=== PATIENT | male | born 1940 | race Caucasian/White ===

== ENCOUNTER 2022-03-18 06:09 | Outpatient (REF) | payer MEDICARE, SELFPAY ==
[2022-03-18 07:51] LABS: MANUAL DIFF FLAG NO
[2022-03-18 07:55] LABS: Basophils Percent Auto 0.6 % (0-2); Eosinophils Absolute Auto 0.2 X10*3/uL (0.0-0.4); Eosinophils Percent Auto 3.2 % (0-4); Hematocrit 34.6 % (42.0-52.0); Hemoglobin 11.7 g/dl (14.0-18.0); Imm Gran Abs Auto 0.02 X10*3/uL (0.00-0.03); Imm Gran Pct Auto 0.3 % (0.0-0.4); Lymphocytes Absolute Auto 2.2 X10*3/uL (1.2-4.9); Lymphocytes Percent Auto 31.7 % (20-40); Mean Corpuscular HGB Conc 33.8 g/dl (31.0-36.0); Mean Corpuscular Hemoglobin 31.1 pg (27.0-33.0); Mean Platelet Volume 8.6 fL (9.4-12.4); Monocytes Absolute Auto 0.5 X10*3/uL (0.1-1.2); Monocytes Percent Auto 7.8 % (2-11); Neutrophils Absolute Auto 3.9 x10*3/uL (2.0-8.3); Neutrophils Percent Auto 56.4 % (45-73); Platelet Count 252 X10*3/uL (160-400); Red Blood Count 3.76 X10*6/uL (4.60-5.80); Red Cell Distribution Width 15.5 % (11.0-16.0)
[2022-03-18 08:17] LABS: Estimated Average Glucose 171 mg/dL; Hemoglobin A1c % 7.6 %
[2022-03-18 08:37] LABS: B Type Natriuretic Peptide 66 pg/mL (<100)
[2022-03-18 08:38] LABS: Alanine Aminotransferase 40 U/L (0-40); Albumin Level 3.4 g/dL (3.5-5.0); Alkaline Phosphatase 100 U/L (39-117); Anion Gap 14 (12-20); Aspartate Amino Transferase 36 U/L (5-37); Bilirubin Total 0.8 mg/dL (0.0-1.0); Blood Urea Nitrogen 24 mg/dL (9-16); Calcium 8.7 mg/dL (8.4-10.2); Carbon Dioxide 24 mmol/L (22-29); Chloride 102 mmol/L (96-108); Estimated Glomerular Filt Rate > 60; Glucose Fasting 116 mg/dL (60-99); Sodium 136 mmol/L (135-145); Total Protein 7.4 g/dL (6.5-8.0)
[2022-03-18 08:54] LABS: Prostate Specific Antigen Scr 1.96 ng/mL (<0.05-4.0); Thyroid Stimulating Hormone 3.71 uIU/mL (0.32-4.0); Vitamin D 25-OH Total 22.4 ng/mL (>30)
[2022-03-18 09:08] LABS: Folate 17.8 ng/mL (> or = 4.0); Vitamin B12 414 pg/mL (200-900)
[2022-03-18 12:24] LABS: Appearance Urine Clear; Color Urine Yellow; Glucose Urine UA Negative (Negative); Leukocyte Esterase Urine Negative (Negative); Nitrite Urine Negative (Negative); PH 6.5 (5.0-9.0); Urine Blood Negative (Negative); Urine Ketones Negative (Negative); Urine Protein Negative (Neg-Trace)
[2022-03-18 13:37] LABS: Creatinine Urine 42.53 mg/dL; Microalbum/Creatinine Ratio Ur 14.1 ug/mg cr
[2022-03-21 04:02] LABS: TS Negative Control Passed; TS Panel A 0; TS Panel B 0; TS Positive Control Passed; TSpotTB Negative (Negative)
== END 2022-03-18 06:10 | disposition home or self-care (01) ==
LOC: HO.HSH2E 06:09
PROVIDERS: Visit Provider Internal Medicine Medical Oncology
DX: Z11.1 Encounter for screening for respiratory tuberculosis (principal); Z12.5 Encounter for screening for malignant neoplasm of prostate; E11.9 Type 2 diabetes mellitus without complications; I10 Essential (primary) hypertension; M81.0 Age-related osteoporosis without current pathological fracture
CPT/HCPCS: 36415; 80053; 81003; 82043; 82306; 82607; 82746; 83036; 83880; 84153; 84443; 85025; 86481

== ENCOUNTER 2022-07-15 05:56 | Outpatient (REF) | payer MEDICARE, SELFPAY ==
[2022-07-15 06:36] LABS: Cholesterol 98 mg/dL; HDL Cholesterol 37 mg/dL; LDL Cholesterol Calculated 43 mg/dl; Triglycerides 93 mg/dL
[2022-07-15 06:51] LABS: Vitamin D 25-OH Total 24.9 ng/mL (>30)
== END 2022-07-15 05:57 | disposition home or self-care (01) ==
LOC: HO.HSH2E 05:56
PROVIDERS: Visit Provider Internal Medicine Medical Oncology
DX: E78.00 Pure hypercholesterolemia, unspecified (principal); E55.9 Vitamin D deficiency, unspecified
CPT/HCPCS: 36415; 80061; 82306

== ENCOUNTER 2022-09-03 05:39 | Outpatient (REF) | payer MEDICARE, SELFPAY | END 2022-09-03 05:40 | disposition home or self-care (01) | LOC: HO.HSH2E 05:39 | PROVIDERS: Visit Provider Internal Medicine Medical Oncology | DX: I50.9 Heart failure, unspecified (principal) | CPT/HCPCS: 36415; 80053; 83880; 85025 ==

== ENCOUNTER 2022-12-14 05:22 | Outpatient (REF) | payer MEDICARE, SELFPAY ==
[2022-12-14 06:27] LABS: MANUAL DIFF FLAG NO
[2022-12-14 06:29] LABS: Basophils Percent Auto 0.6 % (0-2); Eosinophils Absolute Auto 0.2 X10*3/uL (0.0-0.4); Eosinophils Percent Auto 2.5 % (0-4); Imm Gran Abs Auto 0.01 X10*3/uL (0.00-0.03); Imm Gran Pct Auto 0.1 % (0.0-0.4); Lymphocytes Absolute Auto 2.1 X10*3/uL (1.2-4.9); Lymphocytes Percent Auto 31.7 % (20-40); Mean Corpuscular HGB Conc 34.2 g/dl (31.0-36.0); Mean Corpuscular Hemoglobin 31.9 pg (27.0-33.0); Mean Corpuscular Volume 93.1 fL (80.0-98.0); Monocytes Absolute Auto 0.5 X10*3/uL (0.1-1.2); Monocytes Percent Auto 7.5 % (2-11); Neutrophils Absolute Auto 3.9 x10*3/uL (2.0-8.3); Neutrophils Percent Auto 57.6 % (45-73); Platelet Count 224 X10*3/uL (160-400); Red Blood Count 4.08 X10*6/uL (4.60-5.80); Red Cell Distribution Width 13.7 % (11.0-16.0); White Blood Count 6.7 X10*3/uL (4.8-10.8)
[2022-12-14 06:46] LABS: Alanine Aminotransferase 27 U/L (0-40); Albumin Level 3.8 g/dL (3.5-5.0); Alkaline Phosphatase 86 U/L (39-117); Anion Gap 15 (12-20); Aspartate Amino Transferase 27 U/L (5-37); Bilirubin Total 0.6 mg/dL (0.0-1.0); Blood Urea Nitrogen 23 mg/dL (9-16); Carbon Dioxide 24 mmol/L (22-29); Chloride 101 mmol/L (96-108); Estimated Glomerular Filt Rate 57; Glucose Random 166 mg/dL (60-115); Magnesium 1.8 mg/dL (1.6-2.6); Potassium 4.1 mmol/L (3.3-5.1); Sodium 136 mmol/L (135-145)
== END 2022-12-14 05:23 | disposition home or self-care (01) ==
LOC: HO.HSH2E 05:22
PROVIDERS: Visit Provider Internal Medicine Medical Oncology
DX: I49.8 Other specified cardiac arrhythmias (principal)
CPT/HCPCS: 36415; 80053; 82550; 83735; 85025

== ENCOUNTER 2023-01-10 05:12 | Outpatient (REF) | payer MEDICARE, SELFPAY ==
[2023-01-10 07:21] LABS: Cholesterol 113 mg/dL (<200); HDL Cholesterol 35 mg/dL (>40); LDL Cholesterol Calculated 52 mg/dL (<100); Triglycerides 133 mg/dL (<150)
== END 2023-01-10 05:13 | disposition home or self-care (01) ==
LOC: HO.HSH2E 05:12
PROVIDERS: Visit Provider Internal Medicine Medical Oncology
DX: E78.5 Hyperlipidemia, unspecified (principal)
CPT/HCPCS: 36415; 80061

== ENCOUNTER 2023-04-24 00:48 | Emergency (ER) | payer MEDICARE, SELFPAY ==
--- NOTE | ~2023-04-24 | XR_ITS ---
EXAMINATION: XR CHEST CLINICAL INFORMATION: Chest pain. COMPARISON: None available. TECHNIQUE: Frontal view of the chest was obtained. FINDINGS: The lung volumes are low. The cardiac silhouette appears to be enlarged. Pacer leads are in place. There is a linear right lung base opacity. The lungs are otherwise clear. There are no significant pleural effusions. The bony structures and soft tissues are unremarkable. XR/XR chest 1V IMPRESSION: Linear right lung base opacity likely representing atelectasis in the setting of low lung volumes. The cardiac silhouette appears to be enlarged.
--- NOTE | 2023-04-24 01:00 | ECG_ITS ---
Test Reason : CHEST PX Blood Pressure : / mmHG Vent. Rate : 061 BPM Atrial Rate : 061 BPM P-R Int : 272 ms QRS Dur : 118 ms QT Int : 440 ms P-R-T Axes : -20 -55 -14 degrees QTc Int : 442 ms Atrial-paced rhythm with prolonged AV conduction Left anterior fascicular block Left ventricular hypertrophy with QRS widening ( R in aVL , Ross product ) Abnormal ECG No previous ECGs available Referred By: Maria G Carias Electronically Signed By:LIT GIL MD
[2023-04-24 01:14] VITALS: BP 145/82; BP 172/94; PULSE 64; RESP 18; TEMP 36.7; O2SAT 93; O2SAT 94; BMI 33.2
[2023-04-24 01:17] LABS: MANUAL DIFF FLAG NO
[2023-04-24 01:21] LABS: Basophils Percent Auto 0.5 % (0-2); Eosinophils Absolute Auto 0.1 X10*3/uL (0.0-0.4); Eosinophils Percent Auto 2.2 % (0-4); Hemoglobin 12.7 g/dl (14.0-18.0); Imm Gran Abs Auto 0.02 X10*3/uL (0.00-0.03); Imm Gran Pct Auto 0.4 % (0.0-0.4); Lymphocytes Percent Auto 36.4 % (20-40); Mean Corpuscular HGB Conc 34.3 g/dl (31.0-36.0); Mean Corpuscular Hemoglobin 32.4 pg (27.0-33.0); Mean Corpuscular Volume 94.4 fL (80.0-98.0); Mean Platelet Volume 8.9 fL (9.4-12.4); Monocytes Absolute Auto 0.4 X10*3/uL (0.1-1.2); Neutrophils Percent Auto 53.5 % (45-73); Platelet Count 218 X10*3/uL (160-400); Red Blood Count 3.92 X10*6/uL (4.60-5.80); Red Cell Distribution Width 13.8 % (11.0-16.0); White Blood Count 5.6 X10*3/uL (4.8-10.8)
[2023-04-24 01:25] LABS: INTERNATIONAL NORM RATIO 0.9 (0.9-1.1); Prothrombin Time 11.4 SEC (11.1-13.3)
[2023-04-24 01:32] LABS: Alanine Aminotransferase 38 U/L (0-40); Albumin Level 3.7 g/dL (3.5-5.0); Alkaline Phosphatase 103 U/L (39-117); Anion Gap 16 (12-20); Aspartate Amino Transferase 29 U/L (5-37); Bilirubin Direct 0.2 mg/dL (0.0-0.5); Bilirubin Total 0.5 mg/dL (0.0-1.0); Blood Urea Nitrogen 19 mg/dL (9-16); Carbon Dioxide 25 mmol/L (22-29); Chloride 101 mmol/L (96-108); Creatinine Clr Calc Pharmacy 59.5; Estimated Glomerular Filt Rate > 60; Glucose Random 307 mg/dL (60-115); Magnesium 1.7 mg/dL (1.6-2.6); Potassium 3.9 mmol/L (3.3-5.1); Sodium 138 mmol/L (135-145); Total Protein 7.7 g/dL (6.5-8.0)
[2023-04-24 01:38] LABS: Troponin-I High Sensitivity 6.6 ng/L (<3.5-35.0)
--- NOTE | 2023-04-24 02:45 | ED.CHESTPAIN ---
HPI - Chest Pain General Chief Complaint: Chest Pain Stated Complaint: CP Time Seen by Provider: 04/24/23 01:53 Source: patient Mode of arrival: EMS Limitations: no limitations History of Present Illness HPI narrative: 82-year-old male resident of the [facility] with a history of coronary artery disease, congestive heart failure, cardiac pacemaker, thoracic aortic aneurysm, hypertension, dementia, hyperlipidemia, diabetes, who was sent to the emergency department for evaluation of chest pain. According to the transfer form following information was obtained: ?Midsternal chest pain-23:53/sublingual nitroglycerin with relief. BP prior to nitroglycerin 205/109, after nitroglycerin BP 161/93, heart rate 60 ?. Patient states that he developed left-sided chest pain prior to coming to the emergency department he states that he was in bed at the time. Describes the pain is a sharp pain that did radiate to the right. He denied associated lightheadedness, dizziness, nausea, vomiting, diaphoresis, radiation of the pain to his back. States the pain did radiate down his left arm. Related Data Allergies Allergy/AdvReac Type Severity Reaction Status Date / Time Unable to Assess Allergy Verified 04/24/23 01:00 Review of Systems Review of Systems: Yes all other systems are reviewed and are negative [facility] Past Medical History [facility] Narrative: Social history: Patient states he is lived in the [facility] for at least 3 years. He states that he served in the [employer]. States he does smoke cigarettes. He denies alcohol and drug use. Social History Social History Alcohol intake: current Alcohol intake frequency: holidays/special occasions only Smoked in Last 30 Days: No Use of substances other than those prescribed or required for medical reasons: No Advance Directives: No Advance Directives Information Provided: No Physical Exam Vital Signs: Vital Signs: Last Vital Signs Temp 98.0 F 04/24/23 01:14 Pulse 69 04/24/23 07:31 Resp 17 04/24/23 07:31 BP 148/82 H 04/24/23 07:31 Pulse Ox 96 04/24/23 07:31 O2 Del Method Room Air 04/24/23 07:31 BMI result Body Mass Index 33.2 Vital signs revealed an elevated blood pressure of 145/82 Exam: General: Awake, alert in no distress Head: Normocephalic, atraumatic EENT: PERRL, Lids normal, sclera normal, conjunctiva normal, nose normal , ears normal, throat without erythema or exudates Neck: Supple, no adenopathy Lung: breath sounds symmetric, no wheezing, rales or rhonchi Chest: symmetric movement, moderate tender sternum and left chest Heart: regular rate and rhythm, normal S1, S2 no murmurs or rubs Abdomen: soft, non-tender, nondistended, normal bowel sounds Back: no vertebral tenderness, no CVAT Extremities: no deformities, moves all extremities symmetrically Neuro: Awake, alert, oriented, normal speech, cranial nerves intact, moves all extremities symmetrically Psych: Pleasant, cooperative Medications Administered Discontinued Medications Generic Name Dose Route Start Last Admin Trade Name Freq PRN Reason Stop Dose Admin Ketorolac Tromethamine 15 mg 04/24/23 02:54 04/24/23 03:39 Ketorolac Tromethamine 15 Mg/Ml Vial IVPUSH 04/24/23 02:55 15 mg ONCE STA Administration Medical Decision Making Medical Decision Making [facility] Narrative: 82-year-old male resident of the [facility] with a history of coronary artery disease, congestive heart failure, cardiac pacemaker, thoracic aortic aneurysm, hypertension, dementia, hyperlipidemia, diabetes, who was sent to the emergency department for evaluation of chest pain. Chest pain began at 23:53 hours and the patient was treated with sublingual nitroglycerin. Blood pressure was elevated at 205/109 at the time of onset of his chest pain. Patient describes the pain is a sharp pain that did radiate down his left arm with no other associated symptoms. Vital signs revealed an elevated blood pressure of 145/82 otherwise unremarkable. Exam did reveal sternal and left-sided chest wall tenderness. Differential diagnosis: ?Includes but is not limited to myocardial infarction, myocardial ischemia, chest wall pain, pneumonia, electrolyte abnormalities, anemia Following evaluation was ordered: CBC, BMP, liver panel, magnesium, troponin, PT/INR, EKG, chest x-ray one view, youth nutritional monitor, O2 saturation monitor Patient was initially treated with the following: Toradol 15 mg IV Course: 07:28 hours My interpretation patient's laboratory evaluation is as follows: CBC was normal INR was normal. BUN elevated 19. Glucose elevated 307. LFTs were normal. Troponin was detectable but not elevated at 6.6. Repeat 3 hour troponin was unchanged at 8.2. Chest x-ray revealed no significant abnormalities, the patient has a pacemaker. Twelve EKG revealed an atrial paced rhythm with no other significant abnormalities Patient states his pain has resolved after the above treatment. Patient will be transferred back to the [facility] home. Admission/Observation Consideration of admission/observation: Escalation of care including admission/observation considered Lab Data MDM Lab Attestation statement: I reviewed the patient's lab results. 04/24/23 01:07 04/24/23 01:07 Labs: Lab Results 04/24/23 04/24/23 Range/Units 01:07 04:19 WBC 5.6 (4.8-10.8) X10*3/uL RBC 3.92 L (4.60-5.80) X10*6/uL Hgb 12.7 L (14.0-18.0) g/dl Hct 37.0 L (42.0-52.0) % MCV 94.4 (80.0-98.0) fL MCH 32.4 (27.0-33.0) pg MCHC 34.3 (31.0-36.0) g/dl RDW 13.8 (11.0-16.0) % Plt Count 218 (160-400) X10*3/uL MPV 8.9 L (9.4-12.4) fL Immature Gran % (Auto) 0.4 (0.0-0.4) % Neut % (Auto) 53.5 (45-73) % Lymph % (Auto) 36.4 (20-40) % Monroe % (Auto) 7.0 (2-11) % Eos % (Auto) 2.2 (0-4) % Baso % (Auto) 0.5 (0-2) % Lymph # (Auto) 2.0 (1.2-4.9) X10*3/uL Monroe # (Auto) 0.4 (0.1-1.2) X10*3/uL Eos # (Auto) 0.1 (0.0-0.4) X10*3/uL Baso # (Auto) 0.0 (0.0-0.2) X10*3/uL Abs Immat Gran (auto) 0.02 (0.00-0.03) X10*3/uL Absolute Neuts (auto) 3.0 (2.0-8.3) x10*3/uL Absolute Nucleated RBC 0.000 (0.0-0.012) X10*3/uL Nucleated RBC % (auto) 0.0 (0.0-0.2) /100WBC PT 11.4 (11.1-13.3) SEC INR 0.9 (0.9-1.1) Sodium 138 (135-145) mmol/L Potassium 3.9 (3.3-5.1) mmol/L Chloride 101 (96-108) mmol/L Carbon Dioxide 25 (22-29) mmol/L Anion Gap 16 (12-20) BUN 19 H (9-16) mg/dL Creatinine 1.12 (0.5-1.4) mg/dL Estim Creat Clear Calc 59.5 Estimated GFR > 60 Random Glucose 307 H (60-115) mg/dL Calcium 9.0 (8.4-10.2) mg/dL Magnesium 1.7 (1.6-2.6) mg/dL Total Bilirubin 0.5 (0.0-1.0) mg/dL Direct Bilirubin 0.2 (0.0-0.5) mg/dL AST 29 (5-37) U/L ALT 38 (0-40) U/L Alkaline Phosphatase 103 (39-117) U/L Troponin I High Sens 6.6 8.2 (<3.5-35.0) ng/L Total Protein 7.7 (6.5-8.0) g/dL Albumin 3.7 (3.5-5.0) g/dL Independent Interpretation I performed an independent interpretation of an: EKG and Plain X-Ray Interpretation: My impression of the patient's one-view chest x-ray is as follows: No acute infiltrates, enlarged cardiac silhouette, pacemaker My interpretation the patient's 12 EKG is as follows: Atrial paced rhythm, no ST segment elevation or depression, no significant T-wave abnormalities. Radiology Impression Discussion of test interpretation with radiology: I have reviewed the radiologist's reading. Radiologist Impression: XR chest 1V IMPRESSION: Linear right lung base opacity likely representing atelectasis in the setting of low lung volumes. The cardiac silhouette appears to be enlarged. Dictated By: Zan Nelson External Record Review External record reviewed: Other (Transfer papers from [facility]) Discharge Plan Discharge Clinical Impression: Acute chest wall pain Patient Disposition: Xfer Other Transfer Details: [facility] Instructions: Chest Pain (ED) Additional Instructions: Your chest x-ray was normal. Your 12 EKG was consistent with an atrial paced rhythm with no significant abnormalities. Your blood work was normal. Your 1st high sensitive troponin I was 6 and your 3 hour repeat high sensitive troponin I was 8 suggesting that you did not have heart damage/heart attack as the cause of your chest pain. On your exam you were very tender when I pushed on your left chest and moved your left shoulder suggesting that your pain is caused by the muscles of your chest and shoulder. You received Toradol 15 mg IV which improved her pain. Continue taking your medications as prescribed by your providers. Follow-up with your doctor in 2 days. Please return to the emergency department if your symptoms get worse or if you develop any symptoms that are concerning to you.
[2023-04-24] MEDS: Ketorolac Tromethamine 15 MG/ML VIAL IVPUSH (03:39)
[2023-04-24 04:21] VITALS: BP 167/84; PULSE 62; RESP 16; O2SAT 96
[2023-04-24 04:22] VITALS: PULSE 61
--- NOTE | 2023-04-24 04:24 | PC.NURSE ---
Pt medicated with IV ketoralac for pain. Pt verbalized pain in shoulder improved. 04/09 now
--- NOTE | 2023-04-24 04:37 | PC.NURSE ---
Received call from Tax Professional at the [facility], [place] looking for update. Update provided and informed patient is waiting for repeat troponin results. Call Nika HAAS with report when ready.
[2023-04-24 04:43] LABS: Troponin-I High Sensitivity 8.2 ng/L (<3.5-35.0)
[2023-04-24 06:39] VITALS: BP 158/84; PULSE 77; RESP 16; O2SAT 95
[2023-04-24 07:31] VITALS: BP 148/82; PULSE 69; RESP 17; O2SAT 96
--- NOTE | 2023-04-24 07:59 | PC.NURSE ---
Report received from Xena HAAS & care transferred at 0715. Pt presently appears in NAD, VSS, RR even and unlabored bilaterally on RA. Pt cleared for discharge by ED provider, plan for transport back to [facility]. Daughter (Priyanka) provided with update over the phone regarding her fathers condition. WCTA
== END 2023-04-24 09:35 | disposition other institution (70) ==
PROVIDERS: Emergency Medicine; Emergency Provider Emergency Medicine Emergency Medical Services; PCP Internal Medicine Medical Oncology
DX: R07.89 Other chest pain (principal); M79.602 Pain in left arm; I25.10 Atherosclerotic heart disease of native coronary artery without angina pectoris; F03.90 Unspecified dementia, unspecified severity, without behavioral disturbance, psychotic disturbance, mood disturbance, and anxiety; E11.9 Type 2 diabetes mellitus without complications; Z79.899 Other long term (current) drug therapy
CPT/HCPCS: 36415; 71045; 80048; 80076; 83735; 84484; 85025; 85610; 93005; 96374; 99284; 99285; J1885

== ENCOUNTER → 2023-04-24 01:00 | Outpatient (BNV) | payer MEDICARE, SELFPAY | PROVIDERS: Emergency Provider Emergency Medicine Emergency Medical Services; PCP Internal Medicine Medical Oncology; Visit Provider Internal Medicine Cardiovascular Disease | DX: R94.31 Abnormal electrocardiogram [ECG] [EKG] (principal) | CPT/HCPCS: 93010 ==

== ENCOUNTER 2023-05-18 15:31 | Outpatient (REF) | payer MEDICARE, SELFPAY | END 2023-05-18 15:32 | disposition home or self-care (01) | LOC: HO.HOSX 15:31 | PROVIDERS: Visit Provider Orthopaedic Surgery | DX: Z13.89 Encounter for screening for other disorder (principal) ==

== ENCOUNTER 2023-05-19 12:30 | Outpatient (AMB) | payer MEDICARE, SELFPAY ==
--- NOTE | 2023-05-19 12:42 | A.OFFVIS_ITS ---
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 His symptoms have gotten worse over the last 2 years in spite of continued non operative treatments. The patient describes his neck and shoulder pains as sharp and severe in nature, 8/10. Has taken Tylenol and anti-inflammatory medicines which gave him minimal relief. The patient states that he had a cortisone injection given into his left shoulder several years ago which gave him temporary relief. States that he did fall approximately 18 months ago. He was scheduled to undergo left shoulder surgery several years ago but that surgery was canceled because of cardiac reasons. Allergies Unable to Assess Allergy (Verified 04/24/23 01:00) Medication List - Last Reconciled 05/20/23 by Marlon Alejo MD acetaminophen 325 mg PO QID PRN aspirin 81 mg PO DAILY atorvastatin 40 mg PO BEDTIME docusate sodium 100 mg PO DAILY isosorbide mononitrate ER 30 mg PO DAILY losartan 25 mg PO DAILY losartan 50 mg PO DAILY metformin 1,000 mg PO DAILY metoprolol succinate ER 25 mg PO DAILY omeprazole 20 mg PO DAILY sertraline 25 mg PO DAILY tamsulosin 0.4 mg PO DAILY tramadol 50 mg PO BEDTIME [facility] Surgical History (Updated 05/19/23 @ 13:02 by Shaina Patel CMA) History of appendectomy Social History (Updated 05/19/23 @ 13:03 by Shaina Patel CMA) Alcohol intake: current Alcohol intake frequency: holidays/special occasions only Patient Tobacco Use Status: Former Tobacco user 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al status: retired 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: 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 Physical Exam Vital Signs: BMI result Body Mass Index 33.1 Const Other: Well-nourished well-developed very friendly male awake alert and oriented x3 in no acute distress Neck Other: Cervical spine examination shows right-sided paraspinal muscle tenderness, pain with range of motion, positive Spurling's test, 4/5 strength with testing of his left biceps and left wrist extensors when compared to 5/5 strength on his right side Extrem Other: Left shoulder examination shows decreased range of motion when compared to his right shoulder, 4/5 strength with supraspinatus testing, positive impingement signs, no instability Office Procedures Joint Injection/Drain Joint Injection/Drain Primary Site: left shoulder Prep: site was prepped using aseptic technique Injected: 40 mg of, DepoMedrol and 1% plain lidocaine Procedure: The patient tolerated the procedure well Coding - Large joint Procedure code (CPT) selection complete Results Reviewed Results Reviewed: X-rays of the patient's left shoulder show severe acromioclavicular joint narrowing, a type 3 acromion, no acute bony abnormalities Assessment & Plan Assessment & Plan (1) Impingement syndrome of left shoulder: Code(s): M75.42 - Impingement syndrome of left shoulder (2) Neck pain on left side: Code(s): M54.2 - Cervicalgia Plan Mr. Huerta presents with progressively worsening neck pain which radiates down his left arm possibly due to cervical stenosis. Thus, I will send him for a CT scan of his cervical spine for further evaluation. He is not able to get an MRI because of his pacemaker. The patient also has left shoulder pain due to impingement syndrome and possible rotator cuff tearing. The risks and benefits of a left shoulder cortisone injection were discussed at length with the patient. The patient wished to proceed. He tolerated the injection well. Will continue with his range of motion exercises to prevent stiffness. I will see him back after his cervical spine CT scan to discuss the findings. Feel free to call me at any time should questions regarding his orthopedic management arise. Thank you very much for asking me to see this very friendly gentleman. I spent 22 minutes in reviewing the patient's records and imaging studies, seeing the patient and documenting in the medical record. Orders: Orders AMB Joint Injection/Aspiration 05/19/23 M75.42 - Impingement syndrome of left shoulder CT cervical spine wo IV con 05/19/23 M54.2 - Cervicalgia XR shoulder LT min 2V 05/19/23 M25.512 - Pain in left shoulder Coding Level of Care Code New Pt Level 2 (74077) Diagnoses Impingement syndrome of left shoulder M75.42 Neck pain on left side M54.2 CPT Codes Coding - Large joint: 24597 - Large joint ([id number])
[2023-05-19 12:43] VITALS: BMI 33.1
== END 2023-05-19 13:32 | disposition home or self-care (01) ==
PROVIDERS: PCP Internal Medicine Medical Oncology; Visit Provider Orthopaedic Surgery
DX: M75.42 Impingement syndrome of left shoulder (principal); M54.2 Cervicalgia
CPT/HCPCS: 20610; 99202

== ENCOUNTER 2023-05-19 15:31 | Outpatient (REF) | payer MEDICARE, SELFPAY ==
--- NOTE | ~2023-05-19 | XR_ITS ---
EXAMINATION: XR SHOULDER, LEFT CLINICAL INFORMATION: Pain in left shoulder COMPARISON: None available. TECHNIQUE: 2 views of left shoulder. FINDINGS: There is pacemaker battery over the left axilla. Left shoulder is well maintained with mild flattening of the greater tuberosity possibly related to [place] lesion. Acromioclavicular joint is unremarkable. There is no acute fractures seen. XR/XR shoulder LT min 2V IMPRESSION: Questionably [place] deformity, possibly related to previous dislocation
== END 2023-05-19 15:32 | disposition home or self-care (01) ==
LOC: HO.HOSX 15:31
PROVIDERS: Visit Provider Orthopaedic Surgery
DX: M75.42 Impingement syndrome of left shoulder (principal); M54.2 Cervicalgia; Z91.81 History of falling
CPT/HCPCS: 20610; 73030; 99202; J1020

== ENCOUNTER 2023-05-22 08:03 | Outpatient (REF) | payer MEDICARE, SELFPAY ==
[2023-05-22 08:48] LABS: Influenza A PCR NEGATIVE (Negative); Influenza B PCR NEGATIVE (Negative); Resp Syncy Virus RNA Qual PCR NEGATIVE (Negative); SARS COV2 PCR INHOUSE NEGATIVE (Negative)
== END 2023-05-22 08:04 | disposition home or self-care (01) ==
LOC: HO.HSH2E 08:03
PROVIDERS: Visit Provider Nurse Practitioner Acute Care
DX: R05.9 Cough, unspecified (principal); R09.89 Other specified symptoms and signs involving the circulatory and respiratory systems; J06.9 Acute upper respiratory infection, unspecified
CPT/HCPCS: 0241U

== ENCOUNTER 2023-07-21 13:01 | Outpatient (AMB) | payer MEDICARE, SELFPAY ==
[2023-07-21 13:06] VITALS: BMI 33.1
--- NOTE | 2023-07-21 13:06 | MHC.OFFVIS ---
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 His symptoms have gotten worse over the last 2 years in spite of continued non operative treatments. The patient describes his neck and shoulder pains as sharp and severe in nature, 8/10. Has taken Tylenol and anti-inflammatory medicines which gave him minimal relief. The patient states that he had a cortisone injection given into his left shoulder several years ago which gave him temporary relief. States that he did fall approximately 18 months ago. He was scheduled to undergo left shoulder surgery several years ago but that surgery was canceled because of cardiac reasons. He did have cortisone injection given into his left shoulder at his last visit which was 2 months ago. He got only temporary relief from that injection. At that time I also ordered a CT scan of his cervical spine. Apparently the imaging study was not performed yet. Allergies Unable to Assess Allergy (Verified 07/21/23 13:13) Medication List - Last Reconciled 07/21/23 by Marlon Alejo MD acetaminophen 325 mg PO QID PRN aspirin 81 mg PO DAILY atorvastatin 40 mg PO BEDTIME docusate sodium 100 mg PO DAILY isosorbide mononitrate ER 30 mg PO DAILY losartan 25 mg PO DAILY losartan 50 mg PO DAILY metformin 1,000 mg PO DAILY metoprolol succinate ER 25 mg PO DAILY omeprazole 20 mg PO DAILY sertraline 25 mg PO DAILY tamsulosin 0.4 mg PO DAILY tramadol 50 mg PO BEDTIME [facility] Surgical History (Updated 05/19/23 @ 13:02 by Shaina Patel CMA) History of appendectomy Social History (Updated 05/19/23 @ 13:03 by Shaina Patel CMA) Alcohol intake: current Alcohol intake frequency: holidays/special occasions only Patient Tobacco Use Status: Former Tobacco user 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al status: retired 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: 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 Physical Exam Vital Signs: BMI result Body Mass Index 33.1 Const Other: Well-nourished well-developed very friendly male awake alert and oriented x3 in no acute distress Neck Other: Cervical spine examination shows pain with range of motion, left-sided paraspinal muscle tenderness, positive Spurling's test Extrem Other: Left shoulder examination shows decreased range of motion when compared to his right shoulder, 3/5 strength with supraspinatus testing, positive impingement signs, tenderness over his acromioclavicular joint, no instability Assessment & Plan Assessment & Plan (1) Neck pain on left side: Code(s): M54.2 - Cervicalgia Category: Medical Plan Mr. Huerta presents with left shoulder pain and weakness due to impingement syndrome and possible full-thickness rotator cuff tearing. He also has neck pain which radiates into his left arm most likely due to cervical stenosis or a disc herniation. Thus, I will send the patient for a CT scan of his cervical spine for further evaluation. We will hold off on another left shoulder cortisone injection because his 1st injection was only 2 months ago. He will contact me prior to his follow-up appointment in 6 weeks should any questions or concerns arise. Feel free to call me at any time should questions regarding his orthopedic management arise. I spent 21 minutes in reviewing the patient's records and imaging studies, seeing the patient and documenting in the medical record. Orders: Orders CT cervical spine wo IV con Today M54.2 - Cervicalgia Coding Level of Care Code Est Pt Level 3 (88948) Diagnoses Neck pain on left side M54.2
== END 2023-07-21 13:29 | disposition home or self-care (01) ==
PROVIDERS: PCP Internal Medicine Medical Oncology; Visit Provider Orthopaedic Surgery
DX: M54.2 Cervicalgia (principal)
CPT/HCPCS: 99213

== ENCOUNTER → 2023-07-21 13:01 | Outpatient (BNVA) | payer MEDICARE, SELFPAY | PROVIDERS: PCP Internal Medicine Medical Oncology; Visit Provider Orthopaedic Surgery | DX: M54.2 Cervicalgia (principal) | CPT/HCPCS: 99212 ==

== ENCOUNTER 2023-08-25 10:51 | Outpatient (AMB) | payer MEDICARE, SELFPAY ==
--- NOTE | 2023-08-25 11:04 | MHC.OFFVIS ---
Intake Visit Reasons: Bilateral shoulder pain Intake Note: Petey is a 82-year-old male who presents with complaints of intermittent discomfort in both of his shoulders. He has had cortisone injections in the past which gave him temporary relief. He takes Tylenol as needed for his discomfort. Allergies Unable to Assess Allergy (Verified 08/25/23 11:27) Medication List - Last Reconciled 08/25/23 by Marlon Alejo MD acetaminophen 325 mg PO QID PRN aspirin 81 mg PO DAILY atorvastatin 40 mg PO BEDTIME docusate sodium 100 mg PO DAILY isosorbide mononitrate ER 30 mg PO DAILY losartan 25 mg PO DAILY losartan 50 mg PO DAILY metformin 1,000 mg PO DAILY metoprolol succinate ER 25 mg PO DAILY omeprazole 20 mg PO DAILY sertraline 25 mg PO DAILY tamsulosin 0.4 mg PO DAILY tramadol 50 mg PO BEDTIME [facility] Surgical History History of appendectomy Social History Alcohol intake: current Alcohol intake frequency: holidays/special occasions only Patient Tobacco Use Status: Former Tobacco user 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al status: retired 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: 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 Physical Exam Const Other: Well-nourished well-developed very friendly male awake alert and oriented x3 in no acute distress Extrem Other: Bilateral upper extremity examination shows good capillary refill, no skin lesions noted, normal sensation light touch Bilateral shoulder examination shows forward flexion to 150 degrees, external rotation of 40 degrees, internal rotation to level L4, 4+ out of 5 strength with supraspinatus testing, positive impingement signs, no instability Assessment & Plan Assessment & Plan (1) Bilateral shoulder pain: Code(s): M25.511 - Pain in right shoulder; M25.512 - Pain in left shoulder Plan Mr. Huerta presents with bilateral shoulder discomfort due to syndrome. I had a lengthy discussion with the patient regarding the treatment options. At this time the patient's symptoms are tolerable to him. We will hold off on a cortisone injection. The do's and don'ts of lifting were discussed at length with the patient. Will contact me prior to his follow-up appointment in 3 months should his symptoms worsen in any way. Feel free to call me at any time should questions regarding his orthopedic management arise. I spent 22 minutes in reviewing the patient's records and imaging studies, seeing the patient and documenting in the medical record. Coding Level of Care Code Est Pt Level 3 (60487) Diagnoses Bilateral shoulder pain M25.511; M25.512
== END 2023-08-25 12:41 | disposition home or self-care (01) ==
LOC: HO.HOS 10:51
PROVIDERS: PCP Internal Medicine Medical Oncology; Visit Provider Orthopaedic Surgery
DX: M25.511 Pain in right shoulder (principal); M25.512 Pain in left shoulder
CPT/HCPCS: 99213

== ENCOUNTER → 2023-08-25 10:51 | Outpatient (BNVA) | payer MEDICARE, SELFPAY | PROVIDERS: PCP Internal Medicine Medical Oncology; Visit Provider Orthopaedic Surgery | DX: M25.511 Pain in right shoulder (principal); M25.512 Pain in left shoulder | CPT/HCPCS: 99212 ==

== ENCOUNTER 2023-08-26 14:18 | Outpatient (REF) | payer MEDICARE, SELFPAY ==
--- NOTE | ~2023-08-26 | CT_ITS ---
EXAMINATION: CT CERVICAL SPINE WITHOUT CONTRAST CLINICAL INFORMATION: Neck pain COMPARISON: None available. TECHNIQUE: Multiple 2.0 mm axial images were obtained from base of skull to T1 levels without IV contrast enhancement. Sagittal and coronal 2.0 mm bone window images were reconstructed from axial image data. This CT examination was performed using dose optimization techniques as appropriate, variously including the following: *Automated exposure control *Adjustment of mA and/or kV according to patient size (this includes techniques or standardized protocols for targeted exams where dose is matched to indication/reason for exam; i.e. extremities or head) *Use of iterative reconstruction technique DLP: 398 mGy-cm FINDINGS: There is marked straightening of cervical lordosis. C1/C2: Bony structures are intact with normal alignment. There is no spinal stenosis. C2/C3: Bony structures are intact with normal alignment. There is incomplete segmentation of C3 and C4 vertebral bodies, with persistent posterior bony union. There is no spinal stenosis. Bilateral C2/C3 neuroforamina are patent. Bilateral apophyseal joints are intact with normal alignment. Bilateral apophyseal joints show bony ankylosis. C3/C4: Bony structures are intact with normal alignment. There is no spinal stenosis. There is marked asymmetric left C3/C4 neural foraminal stenosis. Bilateral apophyseal joints are intact with normal alignment. The right apophyseal joint shows bony ankylosis. C4/C5: Bony structures are intact with anterior C4 on C5 displacement by 0.2 cm. There is almost complete loss of intervertebral disc space. There is no spinal stenosis. Bilateral C4/C5 neuroforamina are mildly stenosed. Bilateral apophyseal joints are intact with normal alignment. C5/C6: There is nonsegmentation of C5 and C6 vertebral bodies. Bony structures are intact with normal alignment. There is no spinal stenosis. There is moderate asymmetric right C5/C6 neural foraminal stenosis. Bilateral apophyseal joints are intact with normal alignment. C6/C7: Bony structures are intact with normal alignment. Large sharp and small posterior syndesmophytes are present. There is severe decrease in anterior intervertebral disc height. There is no spinal stenosis. Bilateral C6/C7 neuroforamina are patent. Bilateral apophyseal joints are intact with normal alignment. C7/T1: Bony structures are intact with normal alignment. There is no spinal stenosis. Bilateral C7/T1 neuroforamina are patent. Bilateral apophyseal joints are intact with normal alignment. Multilevel bilateral apophyseal joint and uncovertebral joint osteoarthritis with loss of joint space, sclerosis, facet hypertrophy and osteophytosis are seen. CT/CT cervical spine wo IV con IMPRESSION: 1. No acute fracture or dislocation is seen in the cervical spine. 2. There are incomplete segmentation of C3-C4, nonsegmentation of C5-C6. 3. There is marked asymmetric left C3/C4, mild bilateral C4-C5, moderate right C5-C6 neural foraminal stenosis. 4. There is no spinal stenosis. 5. Multilevel advanced cervical spondylosis including severe C3-C4 and C6-C7 degenerative cervical disc disease. 6. Grade 1 C4-C5 anterolisthesis is present. Fleischner guidelines were followed.
== END 2023-08-26 14:19 | disposition home or self-care (01) ==
LOC: HO.CT 14:18
PROVIDERS: Visit Provider Orthopaedic Surgery
DX: M54.2 Cervicalgia (principal)
CPT/HCPCS: 72125

== ENCOUNTER 2023-12-14 14:31 | Outpatient (AMB) | payer MEDICARE, SELFPAY ==
[2023-12-14 14:33] VITALS: BMI 33.1
--- NOTE | 2023-12-14 14:33 | A.OFFVIS_ITS ---
Vital Signs 12/14/23 14:33 Height 5 ft 10 in Weight 231 lb BMI 33.1 Intake Visit Reasons: Left shoulder pain Intake Note: Petey is a 83 year old male presents with complaints of progressively worsening left shoulder pain as well as neck pain. He describes his pains as sharp in nature. Has had cortisone injections in the past which gave him fairly good relief. He has tried Tylenol and aspirin which gave him mild relief. He wishes to hold off on surgery for as long as possible. Allergies Unable to Assess Allergy (Verified 12/14/23 14:40) Medication List - Last Reconciled 12/15/23 by Marlon Alejo MD acetaminophen 325 mg PO QID PRN aspirin 81 mg PO DAILY atorvastatin 40 mg PO BEDTIME docusate sodium 100 mg PO DAILY isosorbide mononitrate ER 30 mg PO DAILY losartan 25 mg PO DAILY losartan 50 mg PO DAILY metformin 1,000 mg PO DAILY metoprolol succinate ER 25 mg PO DAILY omeprazole 20 mg PO DAILY sertraline 25 mg PO DAILY tamsulosin 0.4 mg PO DAILY tramadol 50 mg PO BEDTIME [facility] Surgical History History of appendectomy Social History Alcohol intake: current Alcohol intake frequency: holidays/special occasions only Patient Tobacco Use Status: Former Tobacco user 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al status: retired 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: 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 Physical Exam Vital Signs: BMI result Body Mass Index 33.1 Const Other: Well-nourished well-developed very friendly male awake alert and oriented x3 in no acute distress Extrem Other: Bilateral upper extremity examination shows good capillary refill, no skin lesions noted, normal sensation light touch Left shoulder examination shows slightly decreased range of motion when compared to his right shoulder, 4+ out of 5 strength with supraspinatus testing, positive impingement signs, no instability Office Procedures Joint Injection/Aspiration Joint Injection/Aspiration Primary Site: left shoulder Prep: site was prepped using aseptic technique Injected: 40 mg of, DepoMedrol and 1% plain lidocaine Procedure: The patient tolerated the procedure well Coding 37486 - Large joint Procedure code (CPT) selection complete Results Reviewed Results Reviewed: CT scan of the patient's cervical spine shows evidence of moderate foraminal stenosis and severe degenerative disc disease Assessment & Plan Assessment & Plan (1) Impingement syndrome of left shoulder: Code(s): M75.42 - Impingement syndrome of left shoulder Category: Medical (2) Left shoulder pain: Code(s): M25.512 - Pain in left shoulder Category: Medical Plan Edward presents with progressively worsening left shoulder pain due to impingement syndrome as well as neck pain due to foraminal stenosis and degenerative disc disease. The risks and benefits of a left shoulder cortisone injection were discussed at length with the patient. The patient wished to proceed. He tolerated the injection well. I will also refer him to our pain management department here at [facility] for further information regarding treatment options for his neck pain. The patient will contact me prior to his follow-up appointment in 3 months should any questions or concerns arise. Feel free to call me at any time should questions regarding his orthopedic management arise. I spent 21 minutes in reviewing the patient's records and imaging studies, seeing the patient and documenting in the medical record. Orders: Orders AMB Joint Injection/Aspiration 12/14/23 M75.42 - Impingement syndrome of left shoulder Referrals Pain Management Referral M54.2 - Cervicalgia Coding Level of Care Code Est Pt Level 3 (59268) Complex EM visit Add On G2211 Diagnoses Impingement syndrome of left shoulder M75.42 Left shoulder pain M25.512 CPT Codes Coding - 49143 Large joint: 05235 - Large joint ([id number])
== END 2023-12-14 15:05 | disposition home or self-care (01) ==
PROVIDERS: PCP Internal Medicine Medical Oncology; Visit Provider Orthopaedic Surgery
DX: M75.42 Impingement syndrome of left shoulder (principal); M54.2 Cervicalgia
CPT/HCPCS: 20610; 99213

== ENCOUNTER → 2023-12-14 14:31 | Outpatient (BNVA) | payer MEDICARE, SELFPAY | PROVIDERS: PCP Internal Medicine Medical Oncology; Visit Provider Orthopaedic Surgery | DX: M75.42 Impingement syndrome of left shoulder (principal); M25.512 Pain in left shoulder | CPT/HCPCS: 20610; 99212; J1010; J2003 ==

== ENCOUNTER 2024-01-02 10:53 | Outpatient (AMB) | payer MEDICARE, SELFPAY ==
--- NOTE | 2024-01-02 10:56 | A.OFFVIS_ITS ---
Vital Signs 01/02/24 11:09 Height 5 ft 10 in Weight 230 lb BMI 33.0 BP 142/90 H Blood Pressure Location Rt radial Position Sitting Respiration 16 Pulse 65 Pulse Source Pulse Oximeter Pulse Oximetry (%) 93 Oxygen Delivery Method Room Air Intake Visit Reasons: Cervicalgia Intake Note: Patient comes in for initial visit was referred [facility]. He is accompanied by RAZ Irizarry from [facility] and step daughter Jana. He reports pain 7-8 of left neck and shoulder. Allergies Unable to Assess Allergy (Verified 01/02/24 11:12) HPI Comments Details: Petey is very pleasant 83 years old gentleman who presents in my office with complains on severe intractable pain in the cervical area in the upper back with radiation of the pain to the left lower extremity. She reported that this pain started in April to July of this year. He relates this pain some how to history of falls. He had 2 falls at home secondary to syncope and he was admitted for 4 the care to [facility]. He can not sleep normally because of his pain can not do activities of daily living can not take care of himself can not function normally he is retired individual. He reports that weather aggravates his pain. He had CT scan of the cervical spine results of which dictated as below. He had physical therapy and continues to have physical therapy for neck and shoulder. He was examined by our orthopedic surgeon Dr. Del Cid, the injection was performed into his left shoulder with minimal effect. Patient reports no more than 1 week of pain improvement. Past medical history is significant for hypertension history of syncope history of coronary artery disease history of congestive heart failure however with preserved ejection fraction, he has history of diabetes his hemoglobin A1c was elevated to 11.6 and now he has started elevated doses of insulin. He has history of pancreatitis. Past surgical history is significant for history of presumably C5-C6 anterior fusion of the vertebra with diskectomy. Judging by the view on the MRI multiple, C3-C4 and C6-C7, levels are auto fused. He has a history of pacemaker insertion IVC filter insertion. Attempt of the cholecystectomy was performed in the past on this patient and he had syncope and cardiac arrest during the induction of the anesthesia, resuscitation was performed however the pacemaker was inserted only recently. Social history he is retired [employer] , he exhibits signs of forgetfulness and early starting dementia, he denies smoking cigarettes Neto alcohol he denies recreational drugs he admits coffee. [facility] Surgical History History of appendectomy Social History Alcohol intake: current Alcohol intake frequency: holidays/special occasions only Patient Tobacco Use Status: Former Tobacco user 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al status: retired 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: 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 Review of Systems Const All systems reviewed & are unremarkable except as noted in HPI and below ENT Reports Normal hearing present Card Reports as per HPI Resp Reports no additional complaints GI Reports as per HPI Reports no additional complaints Musc Reports as per HPI Neuro Reports no additional complaints, Reports Normal hearing present, Denies Abnormal speech present, Denies confusion and Denies Sensory deficit (Neuro) Psych Reports no additional complaints and Denies confusion Endo Reports as per HPI Physical Exam Vital Signs: Last Vital Signs Pulse 65 01/02/24 11:09 Resp 16 01/02/24 11:09 BP 142/90 H 01/02/24 11:09 Pulse Ox 93 01/02/24 11:09 Oxygen Delivery Method Room Air 01/02/24 11:09 BMI result Body Mass Index 33.0 Const General: no acute distress; No confusion Nutritional Appearance: obese morbidly obese Orientation/consciousness: patient oriented x3 and No confusion Eyes General: appearance normal, both eyes and all related structures Pupils: Equal, round and reactive pupils present EOM: EOMs intact bilaterally Neck Other: No mobility at all at the cervical spine. Tenderness on palpation projection of paraspinal spinal region of the cervical spine. Valsalva maneuver does not aggravate the patient's pain. Chest Chest palpation & inspection: normal inspection of the chest Resp Effort & Inspection: normal respiratory effort, able to speak in complete sentences, normal respiratory pattern, no audible wheezes and no cough Cardio Jugular venous distension: no JVD GI Inspection: Yes normal to inspection Neuro General: patient oriented x3, gait normal and No confusion Cranial nerves: Yes CN's II-XII intact bilaterally, Yes Equal, round and reactive pupils present, Yes Normal hearing present and Yes Ability to bilaterally elevate shoulders present Speech: No Abnormal speech present Gait exam (Neuro): Normal gait present Motor exam (neuro): 5/5 motor strength present throughout Sensory Exam: No Sensory deficit (Neuro) Extrem General: No pedal edema Psych Speech and movement: Normal speech and movement present Affect: normal affect Attitude: cooperative Thought process: Normal thought process present Thought content: Normal thought content present Insight: Good insight present (Psych) Judgement: Good judgement present (Psych) Results Reviewed Results Reviewed: T CERVICAL SPINE WITHOUT CONTRAST CLINICAL INFORMATION: Neck pain COMPARISON: None available. This CT examination was performed using dose optimization techniques as appropriate, variously including the following: *Automated exposure control *Adjustment of mA and/or kV according to patient size (this includes techniques or standardized protocols for targeted exams where dose is matched to indication/reason for exam; i.e. extremities or head) *Use of iterative reconstruction technique DLP: 398 mGy-cm FINDINGS: There is marked straightening of cervical lordosis. C1/C2: Bony structures are intact with normal alignment. There is no spinal stenosis. C2/C3: Bony structures are intact with normal alignment. There is incomplete segmentation of C3 and C4 vertebral bodies, with persistent posterior bony union. There is no spinal stenosis. Bilateral C2/C3 neuroforamina are patent. Bilateral apophyseal joints are intact with normal alignment. Bilateral apophyseal joints show bony ankylosis. C3/C4: Bony structures are intact with normal alignment. There is no spinal stenosis. There is marked asymmetric left C3/C4 neural foraminal stenosis. Bilateral apophyseal joints are intact with normal alignment. The right apophyseal joint shows bony ankylosis. C4/C5: Bony structures are intact with anterior C4 on C5 displacement by 0.2 cm. There is almost complete loss of intervertebral disc space. There is no spinal stenosis. Bilateral C4/C5 neuroforamina are mildly stenosed. Bilateral apophyseal joints are intact with normal alignment. C5/C6: There is nonsegmentation of C5 and C6 vertebral bodies. Bony structures are intact with normal alignment. There is no spinal stenosis. There is moderate asymmetric right C5/C6 neural foraminal stenosis. Bilateral apophyseal joints are intact with normal alignment. C6/C7: Bony structures are intact with normal alignment. Large sharp and small posterior syndesmophytes are present. There is severe decrease in anterior intervertebral disc height. There is no spinal stenosis. Bilateral C6/C7 neuroforamina are patent. Bilateral apophyseal joints are intact with normal alignment. C7/T1: Bony structures are intact with normal alignment. There is no spinal stenosis. Bilateral C7/T1 neuroforamina are patent. Bilateral apophyseal joints are intact with normal alignment. Multilevel bilateral apophyseal joint and uncovertebral joint osteoarthritis with loss of joint space, sclerosis, facet hypertrophy and osteophytosis are seen. IMPRESSION: 1. No acute fracture or dislocation is seen in the cervical spine. 2. There are incomplete segmentation of C3-C4, nonsegmentation of C5-C6. 3. There is marked asymmetric left C3/C4, mild bilateral C4-C5, moderate right C5-C6 neural foraminal stenosis. 4. There is no spinal stenosis. 5. Multilevel advanced cervical spondylosis including severe C3-C4 and C6-C7 degenerative cervical disc disease. 6. Grade 1 C4-C5 anterolisthesis is present. Assessment & Plan Assessment & Plan (1) Spondylosis of cervical spine: Code(s): M47.812 - Spondylosis without myelopathy or radiculopathy, cervical region Category: Medical (2) Neck pain on left side: Code(s): M54.2 - Cervicalgia Category: Medical Plan This patient has multiple medical problems and he could be very complex candidate for any interventional pain management. I believe the multiple auto fusions in his cervical spine and multiple spurs will prevent me from doing any diagnostic injections on this patient. I also believe that as the patient with starting dementia he will be a poor candidate for chronic opioid therapy. He exhausted conservative measures such as NSAIDs, Tylenol, physical therapy, steroid injections into shoulder to help his pain. I offered this patient sprint PNS 1st on the left and after that on the right 2 weeks apart to help with his pain I will be aiming the stimulating wire approximately at C5 lamina location. Possibility can be considered for spinal cord stimulator for this patient however he will not be able to tolerate any anesthesia. Coding Level of Care Code New Pt Level 3 (17874) Diagnoses Spondylosis of cervical spine M47.812 Neck pain on left side M54.2
[2024-01-02 11:09] VITALS: BP 142/90; PULSE 65; RESP 16; O2SAT 93; BMI 33.0
== END 2024-01-02 11:28 | disposition home or self-care (01) ==
LOC: HO.PMC 10:54
PROVIDERS: PCP Internal Medicine Medical Oncology; Visit Provider Anesthesiology
DX: M47.812 Spondylosis without myelopathy or radiculopathy, cervical region (principal); M54.2 Cervicalgia
CPT/HCPCS: 99203

== ENCOUNTER → 2024-01-02 10:53 | Outpatient (BNVA) | payer MEDICARE, SELFPAY | PROVIDERS: PCP Internal Medicine Medical Oncology; Visit Provider Anesthesiology | DX: M47.812 Spondylosis without myelopathy or radiculopathy, cervical region (principal); M54.2 Cervicalgia | CPT/HCPCS: 99202 ==

== ENCOUNTER 2024-05-17 08:26 | Outpatient (REF) | payer MEDICARE, SELFPAY ==
[2024-05-17 08:31] LABS: MANUAL DIFF FLAG NO
[2024-05-17 08:58] LABS: Basophils Percent Auto 0.6 % (0-2); Eosinophils Absolute Auto 0.3 X10*3/uL (0.0-0.4); Eosinophils Percent Auto 4.4 % (0-4); Hematocrit 34.7 % (42.0-52.0); Imm Gran Abs Auto 0.02 X10*3/uL (0.00-0.03); Imm Gran Pct Auto 0.3 % (0.0-0.4); Lymphocytes Absolute Auto 2.1 X10*3/uL (1.2-4.9); Lymphocytes Percent Auto 30.7 % (20-40); Mean Corpuscular HGB Conc 34.6 g/dl (31.0-36.0); Mean Corpuscular Hemoglobin 32.5 pg (27.0-33.0); Mean Platelet Volume 9.3 fL (9.4-12.4); Monocytes Absolute Auto 0.5 X10*3/uL (0.1-1.2); Monocytes Percent Auto 6.6 % (2-11); Neutrophils Percent Auto 57.4 % (45-73); Platelet Count 248 X10*3/uL (160-400); Red Blood Count 3.69 X10*6/uL (4.60-5.80); Red Cell Distribution Width 14.8 % (11.0-16.0); White Blood Count 6.9 X10*3/uL (4.8-10.8)
[2024-05-17 09:08] LABS: Estimated Average Glucose 140 mg/dL; Hemoglobin A1c % 6.5 % (<6.0)
[2024-05-17 09:10] LABS: Anion Gap 13 (12-20); Blood Urea Nitrogen 19 mg/dL (9-16); Carbon Dioxide 24 mmol/L (22-29); Chloride 108 mmol/L (96-108); Estimated Glomerular Filt Rate > 60; Glucose Random 89 mg/dL (60-115); Potassium 3.9 mmol/L (3.3-5.1); Sodium 141 mmol/L (135-145)
== END 2024-05-17 08:27 | disposition home or self-care (01) ==
LOC: HO.HSH2E 08:26
PROVIDERS: Visit Provider Internal Medicine Endocrinology, Diabetes & Metabolism
DX: Z00.00 Encounter for general adult medical examination without abnormal findings (principal); E11.22 Type 2 diabetes mellitus with diabetic chronic kidney disease; N18.9 Chronic kidney disease, unspecified
CPT/HCPCS: 36415; 80048; 83036; 85025

== ENCOUNTER 2024-09-11 12:44 | Emergency (ER) | payer OTHER, SELFPAY ==
[2024-09-11] VITALS (8 sets, daily range): BP systolic 93–132; BP diastolic 48–66; PULSE 60–87; RESP 16–20; TEMP 36.3–37.1; O2SAT 93–97; BMI 33.7
--- NOTE | ~2024-09-11 | XR_ITS ---
EXAMINATION: XR ELBOW, LEFT CLINICAL INFORMATION: trauma COMPARISON: None available. TECHNIQUE: AP, lateral, and oblique views of the left elbow. FINDINGS: Lack of true lateral projection limits assessment for joint effusion. No definite fracture, dislocation, or suspicious bone lesion. Grossly normal alignment. Mild degenerative arthritis in the elbow joint. Mild spurring of both epicondyles. Mild calcific tendinopathy of the triceps tendon. Normal-appearing soft tissues. XR/XR elbow LT min 3V IMPRESSION: 1. No definite fracture or dislocation. 2. Limited evaluation for joint effusion due to obliquity on the lateral projection. 3. Mild degenerative changes. Electronically signed by: Feliciano Da Silva MD 09/11/2024 04:53 PM EDT
--- NOTE | ~2024-09-11 | CT_ITS ---
EXAMINATION: CT HEAD WITHOUT CONTRAST CLINICAL INFORMATION: Trauma COMPARISON: None available. TECHNIQUE: Contiguous axial imaging was performed from the skull base to vertex without intravenous administration of contrast. This CT examination was performed using dose optimization techniques as appropriate, variously including the following: *Automated exposure control *Adjustment of mA and/or kV according to patient size (this includes techniques or standardized protocols for targeted exams where dose is matched to indication/reason for exam; i.e. extremities or head) *Use of iterative reconstruction technique DLP: 760 mGY*cm FINDINGS: There is no acute ischemic change. There is no intracranial hemorrhage. There is no mass-effect or midline shift. There is mild to moderate generalized atrophy. Basal cisterns and ventricles are within normal limits for age/cerebral volume. Orbits are symmetrical and unremarkable. Paranasal sinuses and mastoid air cells are pneumatized. There are no bony abnormalities. CT/CT head/brain wo IV con IMPRESSION: No acute intracranial abnormality. Electronically signed by: Mikhail Maldonado MD 09/11/2024 05:45 PM EDT
--- NOTE | ~2024-09-11 | XR_ITS ---
EXAMINATION: XR SHOULDER, LEFT CLINICAL INFORMATION: trauma COMPARISON: 05/19/2023. TECHNIQUE: AP external rotation, Grashey, scapular Y, and axillary views of the left shoulder. FINDINGS: Normal bone mineralization. No fracture, dislocation, or suspicious bone lesion. Normal alignment. The glenohumeral joint demonstrates mild degenerative arthritis. The AC joint demonstrates moderate degenerative spurring, predominantly superior surface. There is loss of the subacromial space, with superior subluxation of the humeral head upon the glenoid, findings suggesting full-thickness rotator cuff tearing. Remainder of the soft tissue and bony structures appear normal. Dual lead pacer device noted in the left chest wall. XR/XR shoulder LT min 2V IMPRESSION: 1. No definite acute fracture or dislocation of the left shoulder. 2. Findings suggesting likely chronic rotator cuff tearing. Electronically signed by: Feliciano Da Silva MD 09/11/2024 04:57 PM EDT
--- NOTE | ~2024-09-11 | XR_ITS ---
EXAMINATION: XR WRIST, LEFT CLINICAL INFORMATION: trauma COMPARISON: None available. TECHNIQUE: PA, lateral, oblique, and scaphoid views of the left wrist. FINDINGS: No fracture, dislocation, or suspicious bone lesion. Carpal bones are intact and normally aligned. Mild arthritis in the STT joints and first CMC joint. Soft tissues demonstrate vascular calcifications but are otherwise normal. XR/XR wrist LT min 3V IMPRESSION: 1. No definite fracture or dislocation. Electronically signed by: Feliciano Da Silva MD 09/11/2024 04:55 PM EDT
--- NOTE | ~2024-09-11 | XR_ITS ---
EXAMINATION: XR CHEST CLINICAL INFORMATION: weakness, fall COMPARISON: 04/24/2023. TECHNIQUE: Frontal view of the chest was obtained. FINDINGS: Left-sided dual-lead pacer device in place, leads in the right atrium and right ventricle. There is cardiac enlargement. Mediastinal and hilar contours appear normal. Aortic mural calcification. Lungs demonstrate stable mild scarring in the right base. Lungs otherwise grossly clear. No pneumothorax or effusion. No focal osseous or soft tissue abnormality. Degenerative changes in both shoulder joints and throughout the spine. XR/XR chest 1V IMPRESSION: Cardiomegaly. Dual-lead pacer device. No acute findings in the thorax. Electronically signed by: Feliciano Da Silva MD 09/11/2024 04:58 PM EDT
--- NOTE | ~2024-09-11 | CT_ITS ---
EXAMINATION: CT CERVICAL SPINE WITHOUT CONTRAST CLINICAL INFORMATION: Trauma COMPARISON: August 26, 2023 TECHNIQUE: Axial imaging was performed from the base of the skull through T2 without IV contrast. Coronal and sagittal reformatted images were generated from the original axial data set. ALARA: The examination used one or more of the following radiation dose reduction techniques: Automated exposure control, iterative reconstruction, and/or adjustment of mA and/or KV. DLP: 498 mGY*cm FINDINGS: There is osteopenia. Severe multilevel degenerative disc disease and facet arthropathy is most pronounced in the midthoracic spine. There is no prevertebral soft tissue edema. No fracture lines are evident. CT/CT cervical spine wo IV con IMPRESSION: No acute abnormality. Severe multilevel degenerative disc disease and facet arthropathy. Electronically signed by: Mikhail Maldonado MD 09/11/2024 05:49 PM EDT
--- NOTE | 2024-09-11 13:15 | PC.NURSE ---
Patient presents to [facility] from [facility]. PAtient had unwitnessed fall in bathroom striking back of head on wall. PMH dementia. Denies LOC, SOB, vision changes. No thinners. Patient states I lost my balance denies dizziness, lightheadedness Patient has contracted neck EMS unable to place C collar used rolled towels to support neck. BP soft in ED 93/60. PAtient had recent fall on tuesday which resulted in laceration to left elbow, DCD in place patient complains of pain in left elbow. Provider in to see patient. Plan of care on going
--- OUTSIDE RECORDS SUMMARY | 2024-09-11 14:46 | XMS_ITS ---
Author Name [facility] Organization Unknown History of Medication Use Medication Directions Dispensed Refills Start Date End Date Stat us cefdinir (OMNICEF) 300 mg capsule Take 1 capsule (300 mg total) by mouth 2 (two) times a day for 9 days. 08/30/2024 active isosorbide mononitrate (IMDUR) 30 mg 24 hr tablet Take 1 tablet (30 mg total) by mouth 1 (one) time each day. 12/16/2022 suspended metoprolol tartrate (LOPRESSOR) 25 mg tablet Take 1 tablet (25 mg total) by mouth 2 (two) times a day. 12/16/2022 suspended torsemide (DEMADEX) 20 mg tablet Take 1 tablet (20 mg total) by mouth 1 (one) time each day. 06/07/2022 suspended potassium chloride 20 mEq tablet extended release Take 1 Tablet by mouth four times a week. 02/25/2022 suspended aspirin 81 mg EC tablet Take 1 tablet (81 mg total) by mouth 1 (one) time each day. 02/23/2022 suspended docusate sodium (COLACE) 100 mg capsule Take 1 capsule (100 mg total) by mouth 1 (one) time each day. 02/23/2022 suspended metFORMIN (GLUMETZA) 1,000 mg 24 hr tablet Take 1,000 mg by mouth daily (with breakfast) for 90 days. 02/23/2022 suspended atorvastatin (LIPITOR) 40 mg tablet Take 1 tablet (40 mg total) by mouth 1 (one) time each day. 11/24/2021 suspended FREESTYLE LANCETS MISC For E11.65 to check blood sugar once per day 12/11/2019 suspended acetaminophen (TYLENOL) 325 mg tablet Take 2 tablets (650 mg total) by mouth every 4 (four) hours if needed. suspended bisacodyL (DULCOLAX) [address] rectally as needed. suspended citalopram (CeleXA) 10 mg tablet Take 1 tablet (10 mg total) by mouth 1 (one) time each day. suspended losartan (COZAAR) 25 mg tablet Take 1 tablet (25 mg total) by mouth 1 (one) time each day. suspended magnesium hydroxide (MILK OF MAGNESIA) 400 mg/5 mL suspension Take by mouth daily as needed. suspended nitroglycerin (NITROSTAT) 0.[address] 1 Tablet under the tongue every 5 minutes as needed. suspended omeprazole (PRILOSEC) 20 mg tablet,delayed release (DR/EC) Take 1 tablet (20 mg total) by mouth 1 (one) time each day. suspended ondansetron ODT (ZOFRAN-ODT) 4 mg disintegrating tablet Take 1 tablet (4 mg total) by mouth every 4 (four) hours. suspended tamsulosin (FLOMAX) 0.4 mg 24 hr capsule Take 0.4 mg by mouth daily. Take 30 mins after same meal every day. suspended Problems Problem Status Onset Date Problem Type Date of Resolution Source Forgetfulness active 2018-05-05 Problem[address] CT_T HSFRAN Chest pain active 2022-06-22 Problem[address] CT_THSF RAN PAD (peripheral artery disease) ([facility] V24) active 2021-08-21 ProblemAct CT_THSFRAN Encounter for adjustment or management of cardiac device active EncounterDiagnosisAct CT_T HSFRAN Calculus of gallbladder with acute and chronic cholecystitis without obstruction active 2018-07-21 ProblemAct CT_THSFR AN NSTEMI, initial episode of care ([facility] V24, [facility] V28) active 2024 ProblemAct CT_THSFRAN Unsteady gait active 2022-03-17 ProblemAct CT_T HSFRAN Anemia of chronic disease active 2018-09-11 ProblemAct CT_THSFRAN Unspecified abdominal pain active 2021-09-01 ProblemAct CT_THSFRAN DM (diabetes mellitus), type 2 with peripheral vascular complications ([facility] V24, [facility] V28) active 2019-12-11 ProblemAct CT_THSFRAN HLD (hyperlipidemia) active 2021-09-01 ProblemAct CT_THSFRAN Onychomycosis active 2021-08-21 Problem[address] CT_T HSFRAN PLMD (periodic limb movement disorder) active 2018-12-21 ProblemAct CT_THSFRA N Symptomatic bradycardia active 2021-09-01 ProblemAct CT_THSFRAN Ascending aorta dilatation [place] [place] active 2023-01-06 ProblemAct CT_THSFRAN Benign prostatic hyperplasia with urinary frequency active 2018-05-05 ProblemAct CT_THSFRAN Pneumonia active 2024-08-30 ProblemAct CT_THSFR AN Vitreous detachment active 2018-07-05 ProblemAct CT_THSFRAN Central sleep apnea active 2018-07-12 ProblemAct CT_THSFRAN Acute CHF ([facility] [place], [facility] V28) active 2022-03-17 ProblemAct CT_THSFRAN (HFpEF) heart failure with preserved ejection fraction ([facility] [place], [facility] V28) active 2021-11-24 ProblemAct CT_THSFRAN Liver cyst active 2021-07-17 ProblemAct CT_THSF RAN CAD (coronary artery disease) active 2018-07-17 ProblemAct CT_THSFRAN Obese active 2018-08-15 ProblemAct CT_THSFR AN Hearing loss active 2018-07-05 ProblemAct CT_TH SFRAN Cellulitis of left hand active 2022-03-17 ProblemAct CT_THSFRAN Pacemaker active 2021-09-01 ProblemAct CT_THSFR AN Cataract active 2018-07-05 ProblemAct CT_THSFR AN Acute pulmonary embolism ([facility] [place], [facility] [place]28) active 2021-07-17 ProblemAct CT_THSFRAN Bacteremia active 2024-08-30 ProblemAct CT_THSF RAN Sepsis ([facility] [place], [facility] V28) active 2024-08-30 ProblemAct CT_THSFRAN Hypertension active 2024-02-16 ProblemAct CT_TH SFRAN 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 ProblemAct CT_THSFRAN DJD (degenerative joint disease) active 2018-07-05 ProblemAct CT_THSFRAN Immunizations Vaccine Date Source Lot Number Status Influenza, Unspecified 01/31/2022 CT_THSFRAN co mpleted Moderna SARS-CoV-2 COVID-19, mRNA, LNP-S, preservative free 01/08/2021 CT_THSFRAN completed Influenza trivalent, 0.5mL ( Fluad) 65yo and older 11/27/2020 CT_[facility] [id number] completed Moderna SARS-CoV-2 COVID-19, mRNA, LNP-S, preservative free 04/10/2020 [facility] [id number] completed Moderna SARS-CoV-2 COVID-19, mRNA, LNP-S, preservative free 04/04/2020 CT_SFRAN completed Moderna SARS-CoV-2 COVID-19, mRNA, LNP-S, preservative free 03/14/2020 CT_SFRAN completed Moderna SARS-CoV-2 COVID-19, mRNA, LNP-S, preservative free 03/13/2020 [facility] [id number] completed Pneumococcal conjugate 13 va lent (Prevnar 13, PCV13) 2mo and older 02/18/2016 [facility] complet ed Influenza trivalent, 0.5mL, preservative free (Fluarix; FluLaval; Fluzone) ages 6mo and older (Afluria) 3 years and older 12/15/2015 [facility] [id number] completed Zoster Live 12/08/2012 [facility] completed DTaP (Infanrix) 6wks to less than 7yo 11/28/2012 CT_[place] completed Td Tetanus diptheria (Tdvax) 7yo and older 11/28/2005 CT_T HSFRAN completed Pneumococcal polysaccharide 23 valent (Pneumovax 23) 2yo and older 02/28/2005 CT_[place] com pleted
--- OUTSIDE RECORDS SUMMARY | 2024-09-11 14:46 | XMS_ITS | Clinical Summary ---
Author Organization [employer] Address [address] [place] [address] Care Team Providers Care Induction Brazer Name Role Phone Unavailable Primary Care Provider Unavailabl e Allergies No known active allergies Medications Eliquis 5 MG tablet Take 5 mg by mouth 2 times daily. 06/17/2021 Active atorvastatin (Lipitor) 40 MG tablet 01/06/2022 Active docusate sodium (Colace) 100 MG capsule Take 100 mg by mouth in the morning. 09/18/2021 Active furosemide (Lasix) 20 MG tablet 10/28/2021 Active furosemide (Lasix) 40 MG tablet 02/15/2022 Active isosorbide mononitrate ER (Imdur) 30 MG 24 hr tablet 01/06/2022 Active losartan (Cozaar) 50 MG tablet TAKE 1 & 1/2 (ONE & ONE-HALF) TABLETS BY MOUTH ONCE DAILY 12/24/2021 Active metFORMIN XR (Glucophage-XR) 500 MG 24 hr tablet 01/06/2022 Active Suprep Bowel Prep Kit 17.5-3.13-1.6 GM/177ML solution 04/22/2021 Active potassium chloride CR (K-Tab) 20 MEQ ER tablet 02/24/2022 Active Xarelto 20 MG tablet Take 20 mg by mouth in the morning. 08/09/2021 Active senna (Senokot) 8.6 MG tablet TAKE 2 TABLETS BY MOUTH AT BEDTIME FOR 30 DAYS 06/26/2021 Active tamsulosin (Flomax) 0.4 MG 24 hr capsule Take 0.4 mg by mouth at bedtime. 09/16/2021 Active torsemide (Demadex) 20 MG tablet Take 20 mg by mouth in the morning. 03/10/2022 Active losartan (Cozaar) 50 MG tablet Take 1 tablet by mouth in the morning. 02/13/2019 Active atorvastatin (Lipitor) 80 MG tablet 40 mg. 02/13/2019 Active Social History Tobacco Use Types Packs/Day Years Used Date Smoking Tobacco: Unknown Tobacco Cessation:Counseling Given: Not Answered Alcohol Use Standard Drinks/Week Comments Defer 0 (1 standard drink = 0.6 oz pur e alcohol) Sex and Gender Information Value Date Recorded Sex Assigned at Male 03/24/2022 11:26 AM EST Legal Sex Male 11:17 AM EST Gender Identity Male 03/24/2022 11:26 AM EST Sexual Orientation Straight 03/24/2022 11 :26 AM EST Plan of Treatment Health Maintenance Due Date Last Done Comments Anal Pap 1938 Dental Prophylaxis 1938 Dental X-Ray: Bitewings 1938 Dental X-Ray: Full Mouth 1938 Depression Screening 1938 Lipid Panel 1938 SDOH Screening 1938 Alcohol/Substance Use Screening 1950 Hepatitis A Vaccines (1 of 2 - Risk 2-dose series) 1957 Hepatitis B Vaccines (1 of 3 - Risk 3-dose series) 1998 RSV Patients and Patients Aged 60 years or older (1 - 1-dose 75+ series) 2013 Pneumococcal Vaccine: 50+ Years (2 of 2 - PPSV23) 02/17/2017 02/18/2016, 02/28/2005 DTaP/Tdap/Td Vaccines (2 - Tdap) 11/28/2022 11/28/2012, 11/28/2005 Dental Oral Exam 08/12/2023 02/09/2023, 03/31/2022 COVID-19 Vaccine ( season) 2023 02/16/2022, 01/27/2021, 04/10/2020, Additional history exists Tobacco Screening 02/10/2024 02/09/2023 Influenza Vaccine (#1) 2024 , 11/28/2020, 12/30/2019, Additional history exists Zoster Vaccines Completed 08/15/2020, 01/28, 12/08/2012 HIB Vaccines Aged Out No longer eligi ble based on patient's age to complete this topic HPV Vaccines Aged Out No longer eligi ble based on patient's age to complete this topic IPV Vaccines Aged Out No longer eligi ble based on patient's age to complete this topic Meningococcal B Vaccine Aged Out No l onger eligible based on patient's age to complete this topic Meningococcal Vaccine Aged Out No [place] eligible based on patient's age to complete this topic RSV under 20 months Aged Out No longe r eligible based on patient's age to complete this topic Rotavirus Vaccines Aged Out No longer eligible based on patient's age to complete this topic Procedures Procedure Name Priority Date/Time Associated Diagnosis Comments PERIODIC ORAL EVALUATION - ESTABLISHED PATIENT Routine 02/09/2023 9:00 AM EST from Last 3 Months or Most Recently Relevant to Health Maintenance
--- OUTSIDE RECORDS SUMMARY | 2024-09-11 14:46 | XMS_ITS | Encounter Summary ---
Author Organization [facility] Address [address] [place] [address] Care Team Providers Care Nylon Winder Name Role Phone Rafael Malagon MD Primary Care Provider [phone] Encounter Details Date Type Department Care Team (Late st Contact Info) Description 09/02/2024 Telephone Adult Medicine [facility] [address] [place] [address] Brannon Watkins MD [address] [place] [id number] Social History Tobacco Use Types Packs/Day Years Used Date Smoking Tobacco: Former Smokeless Tobacco: Never Alcohol Use Standard Drinks/Week Comments No 0 (1 standard drink = 0.6 oz pur e alcohol) Interpersonal Safety Answer Date Record ed Physical Abuse 09/08/2024 Verbal Abuse 09/08/2024 Sex and Gender Information Value Date Recorded Sex Assigned at Not on file Legal Sex Male 1:21 PM EST Gender Identity Not on file Sexual Orientation Not on file documented as of this encounter Progress Notes * Haylee Espinosa MA - 09/04/2024 12:40 PM EDT [facility] no [facility] a [facility] here. Will forward message to office assistant receptionist pool so they can remove you as his PCP. * Brannon Watkins MD - 09/02/2024 6:13 PM EDT I never seen this patient but I am getting all the referral notes/discharge summaries regularly. Please check with the patient and find out who is his PCP. If he has his PCP outside the [place], let the front desk team member remove my name as PCP. If he has no PCP and he wants to see me then schedule him for hospital discharge follow-up exam within 2 weeks documented in this encounter Plan of Treatment Upcoming Encounters Date Type Department Care Team (Late st Contact Info) Description 10/31/2024 1:30 PM EDT Ancillary Procedure [facility] [address] [place] [address] documented as of this encounter Visit Diagnoses Not on filedocumented in this encounter Care Teams Nylon Winder Relationship Specialty Start Date End Date Rafael Malagon MD [address] [place] [address] [address] [place], [place] PCP - General Endocrinology 09/08/24 documented as of this encounter
--- OUTSIDE RECORDS SUMMARY | 2024-09-11 14:47 | XMS_ITS | Patient Health Record ---
Author Organization [facility] Address [address] [facility] [address] [place] [address] Care Team Providers Care Philanthropy Officer Name Role Phone Ana Laura Marie Primary Care Provider Unavailabl e Allergies No Known Allergies Reason For Referral No Information Medications Medication SIG (Take, Route, Frequency, Duration) Notes Start Date End Date Status Clotrimazole-Betametha sone 1-0.05 % 1 application 1 gm to apply to both feet Externally Twice a day for 14 days Active Multivitamin Adult - 1 tablet Orally Onc e a day Active Isosorbide Mononitrate 20 MG 1 tablet Orally once a day take 30 mg (24 hr tablet) once a day Active Losartan Potassium 50 MG 1 tablet Orally Once a day Active Tamsulosin HCl 0.4 MG 1 capsule Orally O nce a day take 0.4 mg by mouth daily. Take 30 mins after meal every day. Active Atorvastatin Calcium 40 MG 1 tablet Orally Once a day Active Aspirin 81 81 MG 1 tablet Orally Once a day Active Problems Problem Type SNOMED Code ICD Code Onset Dates Problem Status W/U Status Risk Notes Problem 15052907 Type 2 diabetes mellitus with diabetic polyneuropathy (E11.42) Active confirmed Problem 63702373 Type 2 diabetes mellitus with other circulatory complications (E11.59) Active confirmed Problem 470942883 FPC (curre nt) use of insulin (Z79.4) Active confirmed Plan Of Treatment No Information Insurance Providers Payer Name Payer Address Payer Phone Subscriber Number Group Number Insured Name Patient Relationship to Insured Coverage Start Date Coverage End Date [employer] Medicare Preferred [address] [place] [address] [id number] Petey Argueta Self - patient is the insured Medical (General) History Medical History History ICD Code Type 2 diabetes mellitus Periodic limb movement disorder G47.61 Anemia in other chronic diseases classif ied elsewhere D63.8 Obesity, unspecified E66.9 Calculus of gallbladder with acute and chronic cholecystitis without obstruction K80.12 Atherosclerotic heart diseas e of [place] coronary artery without angina pectoris I25.10 Primary central sleep apnea G47.31 Unspecified hearing loss, unspecified ea r H91.90 Unspecified cataract H26.9 Vitreous degeneration, unspecified eye H 43.819 DJD Left hand Benign prostatic hyperplasia with lower urinary tract symptoms N40.1 Old myocardial infarction 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
--- NOTE | 2024-09-11 15:56 | ECG_ITS ---
Test Reason : FALL Blood Pressure : */* mmHG Vent. Rate : 79 BPM Atrial Rate : 79 BPM P-R Int : 186 ms QRS Dur : 124 ms QT Int : 408 ms P-R-T Axes : * -56 -9 degrees QTcB Int : 467 ms Normal sinus rhythm Left anterior fascicular block Left ventricular hypertrophy with QRS widening ( R in aVL , Ross product ) Abnormal ECG When compared with ECG of 24-Apr-2023 01:11, Sinus rhythm has replaced Electronic atrial pacemaker Referred By: Odin Strickland Electronically Signed By: MARY RUIZ
--- NOTE | 2024-09-11 16:05 | PC.NURSE ---
Patient getting CT and xrays performed at this time.
--- NOTE | 2024-09-11 17:24 | ED.GENADULT ---
HPI - General Adult General Chief complaint: Fall Stated complaint: UNWIT FALL IN BR,+HX,-COAG,-LOC,SOFT COLLAR Time Seen by Provider: 09/11/24 15:43 Source: patient, family, RN notes reviewed and old records reviewed Mode of arrival: EMS Limitations: other (Poor historian at baseline) History of Present Illness ED Provider: Marco A HPI narrative: 84 year-old male with past medical history significant for dementia, coronary artery disease, congestive heart failure, pacemaker, hypertension, hyperlipidemia, diabetes evaluation after a fall Per the patient's daughter, [facility] Apparently he was in the bathroom alone when he fell to the ground. In his not clear exactly how he fell as this was not witnessed. The patient reports that he lost his balance He complains of pain to his left arm He initially complained of neck pain to EMS but on presentation to the ER denies any neck pain Apparently the patient was recently admitted due to septic shock from pneumonia. He also had a fall last Tuesday and was evaluated in the emergency department Related Data Home Medications ?Medication ?Instructions ?Recorded ?Confirmed acetaminophen 325 mg capsule 325 mg PO QID PRN 05/19/23 12/15/23 aspirin 81 mg tablet,delayed 81 mg PO DAILY 05/19/23 12/15/23 release atorvastatin 40 mg tablet 40 mg PO BEDTIME 05/19/23 12/15/23 docusate sodium 100 mg capsule 100 mg PO DAILY 05/19/23 12/15/23 isosorbide mononitrate 30 mg 30 mg PO DAILY 05/19/23 12/15/23 tablet,extended release 24 hr losartan 25 mg tablet 25 mg PO DAILY 05/19/23 12/15/23 losartan 50 mg tablet 50 mg PO DAILY 05/19/23 12/15/23 metformin 1,000 mg tablet 1,000 mg PO DAILY 05/19/23 12/15/23 metoprolol succinate 25 mg 25 mg PO DAILY 05/19/23 12/15/23 tablet,extended release 24 hr omeprazole 20 mg capsule,delayed 20 mg PO DAILY 05/19/23 12/15/23 release sertraline 25 mg tablet 25 mg PO DAILY 05/19/23 12/15/23 tamsulosin 0.4 mg capsule 0.4 mg PO DAILY 05/19/23 12/15/23 tramadol 50 mg tablet 50 mg PO BEDTIME 05/19/23 12/15/23 glipizide 5 mg tablet 5 mg PO DAILY 01/02/24 torsemide 20 mg tablet 20 mg PO DAILY 01/02/24 Allergies Allergy/AdvReac Type Severity Reaction Status Date / Time Unable to Assess Allergy Verified 09/11/24 13:09 Review of Systems Constitutional: Constitutional: Denies body ache(s), Denies chills, Denies fever(s), Reports frequent falls and Denies headache(s) Eyes: Eyes: Denies blurry vision ENT: Denies vertigo, Denies dizziness, Denies dry mouth, Denies headache(s) and Denies epistaxis Cardiovascular: Cardiovascular: Denies chest pain and Denies dyspnea on exertion Respiratory: Respiratory: Denies cough and Denies dyspnea on exertion Gastrointestinal: Gastrointestinal: Denies abdominal pain, Denies nausea and Denies vomiting Musculoskeletal: Musculoskeletal: Denies back pain, Reports arthralgias, Reports joint swelling and Reports limited range of motion Integumentary/Breasts: Skin/Breast: Denies rash Neurologic: Denies vertigo, Denies dizziness, Reports frequent falls and Denies headache(s) [facility] Past Medical History Surgical History History of appendectomy Social History Social History Alcohol intake: current Alcohol intake frequency: holidays/special occasions only Patient Tobacco Use Status: Former Tobacco user Smoked in Last 30 Days: No Use of substances other than those prescribed or required for medical reasons: No Advance Directives: Yes Advance Directives Information Provided: Yes Advance Directives on File: No Do you have a plan to hurt others: No Plan 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al status: retired 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: 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 Physical Exam ED Vital Signs: Vital Signs - 24 hr 09/11/24 13:04 09/11/24 13:11 09/11/24 13:11 Temperature 97.4 F 97.4 F 97.4 F Pulse Rate 65 65 65 Respiratory Rate 16 16 16 Blood Pressure 93/60 93/60 93/60 Pulse Oximetry 94 94 94 Oxygen Delivery Method Room Air Room Air Oxygen Flow Rate 09/11/24 14:32 09/11/24 14:38 09/11/24 17:13 Temperature 97.6 F 97.8 F Pulse Rate 61 66 80 Respiratory Rate 16 20 20 Blood Pressure 95/48 L 95/48 L 115/59 L Pulse Oximetry 95 96 97 Oxygen Delivery Method Nasal Cannula Nasal Cannula Nasal Cannula Oxygen Flow Rate 2 2 2 BMI result Body Mass Index 33.7 Const General: healthy appearing, comfortable, no acute distress, alert and awake Nutritional Appearance: well nourished Orientation/consciousness: patient oriented x3 HENMT Head: Yes normocephalic and Yes atraumatic Eyes Eyelids: Yes eyelids normal Conjunctivae: conjunctivae normal Sclerae: sclerae normal Corneas: corneas normal Pupils: Equal, round and reactive pupils present EOM: EOMs intact bilaterally Resp Effort & Inspection: normal respiratory effort, able to speak in complete sentences and not labored Cardio Rate: regular rate Rhythm: regular rhythm GI Inspection: No distended Palpation (GI): Soft to palpation, not firm, nontender, no guarding and not rigid Skin General skin exam: no rashes or lesions noted and elasticity normal Neuro General: patient oriented x3 Cranial nerves: Yes CN's II-XII intact bilaterally, Yes Equal, round and reactive pupils present and Yes Bilaterally intact EOM present Extrem Other: Mild edema with ecchymosis to the dorsal left wrist. There is minimal tenderness to palpation. No tenderness to the left shoulder or elbow on exam. Moving bilateral lower extremities without difficulty Course Reevaluation(s) Reevaluation #1: Patient's workup largely unremarkable, he had a CT scan of the brain that did not show any traumatic injuries. His cervical spine CT scan shows significant degenerative changes but no acute fractures or traumatic injuries. X-rays of the left upper extremity show no acute fractures or malalignment. The patient's labs did not show any acute findings. The patient's labs without any significant findings requiring intervention. [facility] I did discuss this with the patient and family Time: 18:51 Medications Administered Discontinued Medications Generic Name Dose Route Start Last Admin Trade Name Freq PRN Reason Stop Dose Admin Acetaminophen 650 mg 09/11/24 18:17 09/11/24 18:21 Acetaminophen 325 Mg Tablet PO 09/11/24 18:18 650 mg ONCE ONE Administration Medical Decision Making Medical Decision Making MDM Narrative: 84-year-old male past medical history as above presents for evaluation of an unwitnessed fall 2 happened just prior to arrival. Plan for CT scan of the brain and cervical spine given the trauma, he has ecchymosis to his left wrist and complains of pain to the left shoulder and elbow. We will get x-rays to evaluate for traumatic injury. We will get an EKG, basic labs given the unwitnessed fall. The patient has unsteady gait at baseline and is not supposed PEs in the about in his supervised. In his possible that he just lost his balance, but again given this was not witnessed we will get a basic workup Differential Diagnosis Differential Diagnoses: The differential diagnosis associated with the presentation includes Nonsyncopal fall Orthostasis UTI Cardiac arrhythmia Syncope Intracranial hemorrhage Cervical fracture Shoulder fracture Admission/Observation Consideration of admission/observation: Escalation of care including admission/observation considered Lab Data MDM Lab Attestation statement: I reviewed the patient's lab results. No leukocytosis. The patient has a stable anemia. Normal platelet count. Sodium is slightly below normal at 134. This is at his baseline of 22 with a normal creatinine of 1.11. 09/11/24 17:30 09/11/24 17:30 Labs: Lab Results 09/11/24 09/11/24 Range/Units 17:24 17:30 WBC 7.1 (4.8-10.8) X10*3/uL RBC 3.43 L (4.60-5.80) X10*6/uL Hgb 10.8 L (14.0-18.0) g/dl Hct 31.4 L (42.0-52.0) % MCV 91.5 (80.0-98.0) fL MCH 31.5 (27.0-33.0) pg MCHC 34.4 (31.0-36.0) g/dl RDW 14.4 (11.0-16.0) % Plt Count 378 (160-400) X10*3/uL MPV 8.4 L (9.4-12.4) fL Immature Gran % (Auto) 0.4 (0.0-0.4) % Neut % (Auto) 64.1 (45-73) % Lymph % (Auto) 25.7 (20-40) % [place] % (Auto) 7.3 (2-11) % Eos % (Auto) 1.8 (0-4) % Baso % (Auto) 0.7 (0-2) % Lymph # (Auto) 1.8 (1.2-4.9) X10*3/uL [place] # (Auto) 0.5 (0.1-1.2) X10*3/uL Eos # (Auto) 0.1 (0.0-0.4) X10*3/uL Baso # (Auto) 0.1 (0.0-0.2) X10*3/uL Abs Immat Gran (auto) 0.03 (0.00-0.03) X10*3/uL Absolute Neuts (auto) 4.5 (2.0-8.3) x10*3/uL Absolute Nucleated RBC 0.000 (0.0-0.012) X10*3/uL Nucleated RBC % (auto) 0.0 (0.0-0.2) /100WBC Sodium 134 L (135-145) mmol/L Potassium 4.5 (3.3-5.1) mmol/L Chloride 102 (96-108) mmol/L Carbon Dioxide 23 (22-29) mmol/L Anion Gap 14 (12-20) BUN 22 H (9-16) mg/dL Creatinine 1.11 (0.5-1.4) mg/dL Estim Creat Clear Calc 56.6 Estimated GFR > 60 Random Glucose 136 H (60-115) mg/dL Calcium 9.2 (8.4-10.2) mg/dL Magnesium 1.7 (1.6-2.6) mg/dL Total Bilirubin 0.8 (0.0-1.0) mg/dL AST 49 H (5-37) U/L ALT 37 (0-40) U/L Alkaline Phosphatase 202 H (39-117) U/L Troponin I High Sens 12.7 D (<3.5-35.0) ng/L B-Natriuretic Peptide 117 H (<100) pg/mL Total Protein 8.4 H (6.5-8.0) g/dL Albumin 3.8 (3.5-5.0) g/dL Lipase 16 (8-78) U/L Influenza Type A (PCR) NEGATIVE (Negative) Influenza Type B (PCR) NEGATIVE (Negative) RSV RNA Qual (PCR) NEGATIVE (Negative) SARS-CoV-2 RNA (RT-PCR) NEGATIVE (Negative) Independent Interpretation I performed an independent interpretation of an: EKG Discharge Plan Discharge Clinical Impression: Unwitnessed fall Patient Disposition: Xfer SNF Transfer Details: [facility] Instructions: Fall Prevention for Older Adults (ED) Additional Instructions: Your workup today was reassuring. This includes your labs, CT scans, EKG Follow-up with your primary doctor, return for new or worsening symptoms Prescriptions: No Action acetaminophen 325 mg capsule 325 mg PO QID PRN aspirin 81 mg tablet,delayed release (DR/EC) 81 mg PO DAILY atorvastatin 40 mg tablet 40 mg PO BEDTIME docusate sodium 100 mg capsule 100 mg PO DAILY isosorbide mononitrate 30 mg tablet extended release 24 hr 30 mg PO DAILY losartan 25 mg tablet 25 mg PO DAILY losartan 50 mg tablet 50 mg PO DAILY metformin 1,000 mg tablet 1,000 mg PO DAILY metoprolol succinate 25 mg tablet extended release 24 hr 25 mg PO DAILY omeprazole 20 mg capsule,delayed release(DR/EC) 20 mg PO DAILY sertraline 25 mg tablet 25 mg PO DAILY tamsulosin 0.4 mg capsule 0.4 mg PO DAILY tramadol 50 mg tablet 50 mg PO BEDTIME glipizide 5 mg tablet 5 mg PO DAILY torsemide 20 mg tablet 20 mg PO DAILY Print Language: Indonesian
[2024-09-11 17:34] LABS: MANUAL DIFF FLAG NO
[2024-09-11 17:36] LABS: Hematocrit 31.4 % (42.0-52.0); Hemoglobin 10.8 g/dl (14.0-18.0); Imm Gran Abs Auto 0.03 X10*3/uL (0.00-0.03); Imm Gran Pct Auto 0.4 % (0.0-0.4); Lymphocytes Absolute Auto 1.8 X10*3/uL (1.2-4.9); Mean Corpuscular HGB Conc 34.4 g/dl (31.0-36.0); Mean Corpuscular Hemoglobin 31.5 pg (27.0-33.0); Mean Corpuscular Volume 91.5 fL (80.0-98.0); NRBC Abs Auto 0.000 X10*3/uL (0.0-0.012); NRBC Pct Auto 0.0 /100WBC (0.0-0.2); Platelet Count 378 X10*3/uL (160-400); Red Blood Count 3.43 X10*6/uL (4.60-5.80); White Blood Count 7.1 X10*3/uL (4.8-10.8)
[2024-09-11 17:48] LABS: Alanine Aminotransferase 37 U/L (0-40); Albumin Level 3.8 g/dL (3.5-5.0); Alkaline Phosphatase 202 U/L (39-117); Anion Gap 14 (12-20); Aspartate Amino Transferase 49 U/L (5-37); Blood Urea Nitrogen 22 mg/dL (9-16); Calcium 9.2 mg/dL (8.4-10.2); Carbon Dioxide 23 mmol/L (22-29); Chloride 102 mmol/L (96-108); Creatinine Clr Calc Pharmacy 56.6; Estimated Glomerular Filt Rate > 60; Lipase 16 U/L (8-78); Magnesium 1.7 mg/dL (1.6-2.6); Potassium 4.5 mmol/L (3.3-5.1); Sodium 134 mmol/L (135-145); Total Protein 8.4 g/dL (6.5-8.0)
[2024-09-11 17:54] LABS: B Type Natriuretic Peptide 117 pg/mL (<100)
[2024-09-11 17:55] LABS: Troponin-I High Sensitivity 12.7 ng/L (<3.5-35.0)
[2024-09-11 18:11] LABS: Resp Syncy Virus RNA Qual PCR NEGATIVE (Negative); SARS COV2 PCR INHOUSE NEGATIVE (Negative)
--- NOTE | 2024-09-11 19:46 | PC.NURSE ---
nurse to nurse given to Nayeli HAAS at [facility] for patient return via ambulance.
== END 2024-09-11 20:41 | disposition skilled nursing facility (03) ==
PROVIDERS: Physician Assistant; Emergency Provider Emergency Medicine; PCP Internal Medicine Endocrinology, Diabetes & Metabolism
DX: S60.212A Contusion of left wrist, initial encounter (principal); W18.30XA Fall on same level, unspecified, initial encounter; Y93.89 Activity, other specified; Y92.091 Bathroom in other non-institutional residence as the place of occurrence of the external cause; Y99.9 Unspecified external cause status; M79.602 Pain in left arm; M54.2 Cervicalgia; R53.1 Weakness; F03.90 Unspecified dementia, unspecified severity, without behavioral disturbance, psychotic disturbance, mood disturbance, and anxiety; I25.10 Atherosclerotic heart disease of native coronary artery without angina pectoris; I11.0 Hypertensive heart disease with heart failure; I50.9 Heart failure, unspecified; E11.9 Type 2 diabetes mellitus without complications; E78.5 Hyperlipidemia, unspecified; Z79.899 Other long term (current) drug therapy; Z95.0 Presence of cardiac pacemaker; Z03.818 Encounter for observation for suspected exposure to other biological agents ruled out
CPT/HCPCS: 70450; 71045; 72125; 73030; 73080; 73110; 80053; 83690; 83735; 83880; 84484; 85025; 87637; 93005; 99284; 99285

== ENCOUNTER → 2024-09-11 15:54 | Outpatient (BNV) | payer OTHER, MEDICARE, SELFPAY | PROVIDERS: PCP Internal Medicine Endocrinology, Diabetes & Metabolism; Visit Provider Radiology Diagnostic Radiology | DX: M47.816 Spondylosis without myelopathy or radiculopathy, lumbar region (principal); G31.9 Degenerative disease of nervous system, unspecified; M25.512 Pain in left shoulder; R53.1 Weakness; M19.022 Primary osteoarthritis, left elbow; M25.532 Pain in left wrist | CPT/HCPCS: 70450; 71045; 72125; 73030; 73080; 73110 ==

== ENCOUNTER → 2024-09-11 15:56 | Outpatient (BNV) | payer OTHER, SELFPAY | PROVIDERS: Emergency Provider Emergency Medicine; PCP Internal Medicine Endocrinology, Diabetes & Metabolism; Visit Provider Internal Medicine | DX: I44.4 Left anterior fascicular block (principal); I51.7 Cardiomegaly | CPT/HCPCS: 93010 ==

== ENCOUNTER 2024-11-08 17:02 | Outpatient (REF) | payer MEDICARE, SELFPAY ==
[2024-11-08 17:26] LABS: Troponin-I High Sensitivity 14.2 ng/L (<3.5-35.0)
--- OUTSIDE RECORDS SUMMARY | 2024-11-08 18:59 | XMS_ITS | Clinical Summary ---
Author Organization [employer] Address [address] [place] [address] Care Team Providers Care Hinging Machine Operator Name Role Phone Unavailable Primary Care Provider [...] older (1 - 1-dose 75+ series) 2013 DTaP/Tdap/Td Vaccines (2 - Tdap) 11/28/2022 11/28/2012, 11/28/2005, 11/28/2005 Dental Oral Exam 08/12/2023 02/09/2023, 03/31/2022 Tobacco Screening 02/10/2024 02/09/2023 COVID-19 Vaccine ( season) 2024 02/16/2022, 01/27/2021, 01/08/2021, Additional history exists Influenza Vaccine (#1) 2024 , 01/31/2022, 11/28/2020, Additional history exists Pneumococcal Vaccine: 50+ Years Completed 02/18/2016, 02/28/2005, 02/28/2005 Zoster Vaccines Completed 08/15/2020, 01/28, 12/08/2012 HIB [...]
--- OUTSIDE RECORDS SUMMARY | 2024-11-08 18:59 | XMS_ITS | Patient Health Record ---
Author Organization [facility] Address [address] [place] [address] Care Team Providers Care Button Grader Name Role Phone Ana Laura Marie Primary Care Provider Unavailabl e Allergies No Known Allergies Reason For Referral No Information Medications Medication SIG (Take, Route, Frequency, Duration) Notes Start Date End Date Status Clotrimazole-Betametha sone 1-0.05 % 1 application 1 gm to apply to both feet Externally Twice a day; Duration: 14 days Active Multivitamin Adult - 1 [...] Problem Status W/U Status Risk Notes Problem Polyneuropathy due to type 2 diabetes mellitus (564610049) Type 2 diabetes mellitus with diabetic polyneuropathy (E11.42) Active confirmed Problem Peripheral circulatory disorder associated with diabetes mellitus (871797375) Type 2 diabetes mellitus with other circulatory complications (E11.59) Active confirmed Problem Long-term current use of insulin (339812299) oysterman (current) use of insulin (Z79.4) Active confirmed Plan Of Treatment No Information Insurance Providers Payer Name Payer Address Payer Phone Subscriber Number Group Number Insured Name Patient Relationship to Insured Coverage Start Date Coverage End Date [employer] Medicare Preferred [address] [place] [address] [phone] [id number] Ana Paula augusto Petey Self - patient is the insured Medical (General) History Medical History History ICD Code Type 2 diabetes mellitus Periodic limb movement disorder G47.61 Anemia in other chronic diseases classif ied elsewhere D63.8 Obesity, unspecified E66.9 Calculus of gallbladder with acute and chronic cholecystitis without obstruction 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
--- OUTSIDE RECORDS SUMMARY | 2024-11-08 18:59 | XMS_ITS | Encounter Summary ---
Author Organization [email or web address] Address [address] [facility] [place] [address] Care Team Providers Care Recruiter Coordinator Name Role Phone Unavailable Primary Care Provider Unavailabl e Encounter Details Date Type Department Care Team (Late st Contact Info) Description 02/11/2023 Abstract [facility] [address] [place] [address] Raul Chan, DMD [address] [place] [address] Social History Tobacco Use Types Packs/Day Years Used Date Smoking Tobacco: Unknown Alcohol Use Standard Drinks/Week Comments Defer 0 (1 standard drink = 0.6 oz pur e alcohol) Sex and Gender Information Value Date Recorded Sex Assigned at Male 03/24/2022 11:26 AM EST Legal Sex Male 11:17 AM EST Gender Identity Male 03/24/2022 11:26 AM EST Sexual Orientation Straight 03/24/2022 11 :26 AM EST documented as of this encounter Plan of Treatment Not on file documented as of this encounter Visit Diagnoses Not on filedocumented in this encounter
== END 2024-11-08 17:03 | disposition home or self-care (01) ==
LOC: HO.HSH2E 17:02
PROVIDERS: Visit Provider Internal Medicine Endocrinology, Diabetes & Metabolism
DX: R07.9 Chest pain, unspecified (principal)
CPT/HCPCS: 36415; 84484

== ENCOUNTER 2024-12-17 06:15 | Outpatient (REF) | payer MEDICARE, SELFPAY ==
--- OUTSIDE RECORDS SUMMARY | 2024-12-17 06:18 | XMS_ITS | Encounter Summary ---
Author Organization [employer] Address [address] [place] [address] Care Team Providers Care Clinical Reimbursement Specialist Name Role Phone Unavailable Primary Care Provider Unavailabl e Encounter Details Date Type Department Care Team (Late st Contact Info) Description 02/11/2023 Abstract [facility] [address] [place] [address] Raul Chan, DMD [address] [place] [address] Social History Tobacco Use Types Packs/Day Years [...]
--- OUTSIDE RECORDS SUMMARY | 2024-12-17 06:18 | XMS_ITS | Clinical Summary ---
Author Organization [address] [place] [address] Address [address] [place] [address] Phone Care Team Providers Care Pit Tanner Name Role Phone Rafael Malagon MD Primary Care Provider Allergies No known active allergies Medications FREESTYLE LANCETS MISC For E11.65 to check blood sugar once per day 0 Active citalopram (CeleXA) 10 mg tablet Take 1 tablet (10 mg total) by mouth 1 (one) time each day. Active docusate sodium (COLACE) 100 mg capsule Take 1 capsule (100 mg total) by mouth 1 (one) time each day. 2 Active isosorbide mononitrate (IMDUR) 30 mg 24 hr tablet Take 1 tablet (30 mg total) by mouth 1 (one) time each day. 3 Active losartan (COZAAR) 25 mg tablet Take 1 tablet (25 mg total) by mouth 1 (one) time each day. Active magnesium hydroxide (MILK OF MAGNESIA) 400 mg/5 mL suspension Take by mouth daily as needed. Active metFORMIN (GLUMETZA) 1,000 mg 24 hr tablet Take 1,000 mg by mouth daily (with breakfast) for 90 days. 2 Active metoprolol tartrate (LOPRESSOR) 25 mg tablet Take 1 tablet (25 mg total) by mouth 2 (two) times a day. 3 Active nitroglycerin (NITROSTAT) 0.[address] 1 Tablet under the tongue every 5 minutes as needed. Active omeprazole (PRILOSEC) 20 mg tablet,delayed release (DR/EC) Take 1 tablet (20 mg total) by mouth 1 (one) time each day. Active ondansetron ODT (ZOFRAN-ODT) 4 mg disintegrating tablet Take 1 tablet (4 mg total) by mouth every 4 (four) hours. Active potassium chloride 20 mEq tablet extended release Take 1 Tablet by mouth four times a week. 2 Active tamsulosin (FLOMAX) 0.4 mg 24 hr capsule Take 0.4 mg by mouth daily. Take 30 mins after same meal every day. Active bisacodyL (DULCOLAX) [address] rectally as needed. Active blood-glucose meter kit For E11.65 to check blood sugar once per day 0 Active blood sugar diagnostic (FreeStyle Lite Strips) test strip 1 Strip by In Vitro route every morning (before breakfast). 0 Active aspirin 81 mg EC tablet Take 1 tablet (81 mg total) by mouth 1 (one) time each day. 2 Active atorvastatin (LIPITOR) 40 mg tablet Take 1 tablet (40 mg total) by mouth 1 (one) time each day. 2 Active acetaminophen (TYLENOL) 325 mg tablet Take 2 tablets (650 mg total) by mouth every 4 (four) hours if needed. Active multivit-min/iron/f olic acid/K (ADULTS MULTIVITAMIN ORAL) Take 1 Tablet by mouth daily. Active sertraline (ZOLOFT) 50 mg tablet Take 1 tablet (50 mg total) by mouth 1 (one) time each day. Active torsemide (DEMADEX) 20 mg tablet Take 1 tablet (20 mg total) by mouth 1 (one) time each day if needed (increased swelling of legs or SOB). 5 Active Active Problems Problem Noted Date Diagnosed Date Lactic acidosis 09/08/2024 Pneumonia 08/30/2024 Bacteremia 08/30/2024 Sepsis ([facility] V24, [facility] V28) 08/30/2024 NSTEMI, initial episode of care ([facility] V24, [facility] V28) 2024 Hypertension 02/16/2024 Overview (02/16/2024): Last Assessment & Plan: Blood pressure well controlled during today's exam with a reading of 120/70. Patient states compliance with medications. He will continue on his current dose of losartan, metoprolol and Imdur. Educated on the importance of continuing with diet and lifestyle modification to help further assist in lowering of blood pressure. He will follow a low-salt low-fat diet, make purposeful strides towards weight loss and engage in routine aerobic exercise 30 minutes a day 4-5 times a week as tolerated. Ascending aorta dilatation ([facility] V24) 023 Overview (02/16/2024): Last Assessment & Plan: Last echocardiogram in January 19 revealed 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 Patient denies chest pain, back pain, shortness of breath or syncope. We will update this to continue surveillance of progression of the aortic dilatation. Chest pain 06/22/2022 Acute CHF ([facility] V24, [facility] V28) 03/17/2022 Cellulitis of left hand 03/17/2022 Unsteady gait 03/17/2022 (HFpEF) heart failure with p reserved ejection fraction ([facility] V24, [facility] V28) 11/24/2021 Overview (02/16/2024): Last Assessment & Plan: Patient euvolemic upon exam today. He denies shortness of breath or dyspnea on exertion. He continues on his current dose of torsemide. He is weighed daily as he resides at the [place]. We will update a surveillance echocardiogram to evaluate LVEF. Educated on the importance of following a low-sodium diet. Patient will continue to perform daily weights and will call our office with a 2 pound weight gain in 1 day or 5 pounds in 5 days accompanied by shortness of breath and lower extremity edema. HLD (hyperlipidemia) 09/01/2021 Overview (02/16/2024): Last Assessment & Plan: Last lipid profile November 2021 revealed a total cholesterol of 120. Triglycerides 133, HDL 55 and LDL of 39. We will update surveillance fasting lipid profile. Goal LDL less than 70 in the setting of coronary artery disease. He will continue on his current dose of Lipitor 40 mg. Pacemaker 09/01/2021 Overview (02/16/2024): Last Assessment & Plan: Continue with routine monitoring in our device clinic as well as remote monitoring. Symptomatic bradycardia 09/01/2021 Overview (02/16/2024): Last Assessment & Plan: Patient has had no episodes of syncope, dizziness or lightheadedness since implantation of dual-chamber pacemaker in August 2021. He continues to follow closely with our device clinic. Last device check September 2022 revealed atrial pacing 78% and ventricular pacing 0.2% ,no new alerts or arrhythmias noted, normal device function. Unspecified abdominal pain 09/01/2021 Onychomycosis 08/21/2021 Overview (02/16/2024): Dr. Deluca PAD (peripheral artery disease) ([facility] V24) Overview (02/16/2024): Diminished pulses in lower extremities Acute pulmonary embolism (CMS/HCC V24, CMS/[facility] V 28) 07/17/2021 Liver cyst 07/17/2021 DM (diabetes mellitus), type 2 with peripheral vascular complications (CMS/HCC V24, CMS/[facility] V28) 12/11/2019 PLMD (periodic limb movement disorder) 9 Anemia of chronic disease 09/11/2018 Overview (02/16/2024): Normal Iron, B12, 08/2018 Obese 08/15/2018 Calculus of gallbladder with acute and chronic cholecystitis without obstruction 07/21/2018 Overview (02/16/2024): Cholecystectomy pending. Had ST depressions on induction of surgery. Later found to have CAD CAD (coronary artery disease) 07/17/2018 Overview (02/16/2024): Abnormal nuclear stress 2018 Follows with cardiology Last Assessment & Plan: Patient denies chest pain , pressure or exertional breathlessness. He has not had to use his nitroglycerin. He continues to be medically managed with metoprolol, aspirin, statin therapy and Imdur. Patient instructed to call 911 or go to the emergency room should begin to experience chest pain lasting greater than 10 minutes that is not relieved with rest or nitroglycerin. Central sleep apnea 07/12/2018 Complex sleep apnea syndrome 07/12/2018 Overview (02/16/2024): [facility] Home Polysomnogram: Date 07/04/2018; Wt 205#; BMI 40; QUIRINO 40, AI 22; HI 18; Unclassified apneas 46; Obstructive apneas 23; Central apneas 105; Mixed apneas 2; hypopneas 143; no oxygen data available. [facility] Sleep Center Polysomnogram treatment study. Date 09/26/2018. Wt 213#; BMI 32; SE 64 % SM 64 %; spent 26 % of the study in REM. On CPAP; RDI 39 (AHI 39), Central apneas 137; Obstructive apneas 39; Mixed apneas 2; hypopneas 48; RERAs 1; and, average oxygen saturation was 94%. For the entire study, PLMs ~131. [facility] Sleep Center Polysomnogram ASV treatment study. Date 12/17/2018. Wt 210#; BMI 41; SE 64 % SM 76 %; spent 22 % of the study in REM. On ASV; RDI 4.2 (AHI 4.2), Central apneas 9; Obstructive apneas 14; Mixed apneas 0; hypopneas 0; RERAs 0; and, average oxygen saturation was 94%. For the entire study, PLMs ~86. - Obstructive Sleep Apnea - severe; mostly hypopneas and central apneas by 2018 home polysomnogram. - CPAP failed to correct SANDRA; central apneas persisted. - ASV corrective. PLMD noted on CPAP and ASV studies (less on ASV study). Cataract 07/05/2018 Vitreous detachment 07/05/2018 Overview (02/16/2024): w/ floaters. DJD (degenerative joint disease) 07/05/2018 Overview (02/16/2024): L hand Hearing loss 07/05/2018 Overview (02/16/2024): Bilateral hearing aids. Benign prostatic hyperplasia with urinary freque ncy 05/05/2018 Forgetfulness 05/05/2018 Encounters Date Type Department Care Team Description 11/21/2024 10:30 AM EDT Ancillary Procedure [facility] [address] [place] [address] Encounter for adjustment or management of cardiac device 11/02/2024 Telephone [facility] [address] [place] [address] Lacey Garces MA 10/10/2024 9:40 AM EDT Ancillary Procedure [facility] [address] [place] [address] 10/10/2024 Telephone [facility] [address] [place] [address] Vicki Garcia PA from Last 3 Months Immunizations Immunization Administration Dates Next Due DTaP (Infanrix) 6wks to less than 7yo 11/28/2012 Influenza trivalent, 0.5mL ( Fluad) 65yo and older 11/27/2020 Influenza trivalent, 0.5mL, preservative free (Fluarix; FluLaval; Fluzone) ages 6mo and older (Afluria) 3 years and older 12/15/2015 Influenza, Unspecified 01/31/2022 Moderna SARS-CoV-2 COVID-19, mRNA, LNP-S, preservative free 01/08/2021,04/10/2020,04/04/2020,03/14,03/13/2020 Pneumococcal conjugate 13 va lent (Prevnar 13, PCV13) 2mo and older 02/18/2016 Pneumococcal polysaccharide 23 valent (Pneumovax 23) 2yo and older 02/28/2005 Td Tetanus diptheria (Tdvax) 7yo and older 11/28/2005 Zoster Live 12/08/2012 Surgical History Surgery Date Site/Laterality Comments INCISIONAL HERNIA REPAIR 2005 PROCEDURE: CT IMPLANT MESH OPN HERNIA RPR/DEBRIDEMENT CLOSURE; COMMENT: laparoscopic with mesh NECK SURGERY PROCEDURE: HISTORICAL NECK SURGERY; COMMENT: anterior approach BOWEL RESECTION 2004 Right PROCEDURE: HISTORICAL BOWEL RESECTION; COMMENT: Right hemicolectomy for colon cancer. COLONOSCOPY 05/28/2020 PROCEDURE: HISTORICAL COLONOSCOPY; COMMENT: 6 mm polyp and 2 cm descending colon polyp, pathology: Tubular adenoma x2. Medical History Medical History Date Comments Anemia of chronic disease 09/11/2018 DX:Ane lexi of chronic disease; COMMENT: Normal Iron 08/2018 Prediabetes DX:Prediabetes DM (diabetes mellitus), type 2 with peripheral vascular complications (CMS/[facility] V24, CMS/[facility] V28) 12/11/2019 DX:DM (diabetes mellitus), type 2 with peripheral vascular complications (HCC) PAD (peripheral artery disea se) (CMS/HCC V24) 08/21/2021 DX:PAD (peripheral artery di sease) ([facility]) Onychomycosis 08/21/2021 DX:Onychomycosis ; COMMENT: Dr. Deluca Family History Medical History Relation Name Comments Other: lung ca Brother Colon cancer Father Other: Other Mother Relation Name Status Comments Brother Father Mother Social History Tobacco Use Types Packs/Day Years Used Date Smoking Tobacco: Former Smokeless Tobacco: Never Alcohol Use Standard Drinks/Week Comments No 0 (1 standard drink = 0.6 oz pur e alcohol) Interpersonal Safety Answer Date Record ed Physical Abuse Unrecognized value 09/08/2024 Verbal Abuse Unrecognized value 09/08/2024 Sex and Gender Information Value Date Recorded Sex Assigned at Not on file Legal Sex Male 1:21 PM EST Gender Identity Not on file Sexual Orientation Not on file Obstetrics History Last Filed Vital Signs Vital Sign Reading Time Taken Comments Blood Pressure 123/82 09/09/2024 2:53 PM EDT Pulse 59 09/09/2024 2:53 PM EDT Temperature 36.2 C (97.2 F) 09/09/2024 2:53 PM EDT Respiratory Rate 18 09/09/2024 2:53 PM EDT Oxygen Saturation 99% 09/09/2024 2:53 PM EDT Inhaled Oxygen Concentration - - Weight 93 kg (205 lb) 09/08/2024 8:19 AM EDT Height 167.6 cm (5' 6 ) 09/08/2024 8:19 AM EDT Body Mass Index 33.09 09/08/2024 8:19 AM EDT Plan of Treatment Upcoming Encounters Date Type Department Care Team (Late st Contact Info) Description 11/26/2025 11:00 AM EDT Ancillary Procedure [facility] [address] [facility] [address] [place] [address] Health Maintenance Due Date Last Done Comments Diabetes: Annual Foot Exam 1950 Diabetes: Annual Retina Eye Exam 1950 RSV Immunization Adult Patients (1 - 1-dose 75+ series) 2013 Medicare Annual Wellness Visit 02/06/2022 Social Influencers of Health Screening 02/06/2022 Diabetes: Blood Sugar Control Test (HGBA1C) 06/03/2022 12/03/2021 DTaP,Tdap,and Td Vaccines (3 - Td or Tdap) 11/28/2022 11/28/2012, 11/28/2012, 11/28/2005 Depression Screening 02/29/2024 COVID-19 Vaccine ( season) 2024 02/16/2022, 09/16/2021, 01/27/2021, Additional history exists Influenza Vaccine (#1) 2024 , 01/31/2022, 11/28/2020, Additional history exists Falls Risk Assessment 09/09/2025 09/09/2024 Hypertension/CHF/CAD Annual BMP Blood Test 09/09/2025 09/09/2024, 09/08/2024, 08/29/2024, Additional history exists Cholesterol Screening (Lipid Panel) 12/03/2026 12/03/2021 Pneumococcal Vaccine: 50+ Years Completed 02/18/2016, 02/28/2005, 02/28/2005 Zoster Vaccines Completed 08/15/2020, 01/28, 12/08/2012 HIB Vaccines Aged Out No longer eligi ble based on patient's age to complete this topic HPV Vaccines Aged Out No longer eligi ble based on patient's age to complete this topic Hepatitis A Vaccines Aged Out No long er eligible based on patient's age to complete this topic Hepatitis B Vaccines Aged Out No long er eligible based on patient's age to complete this topic IPV Vaccines Aged Out No longer eligi ble based on patient's age to complete this topic MMR Vaccines Aged Out No longer eligi ble based on patient's age to complete this topic Meningococcal ACWY Vaccine Aged Out N o longer eligible based on patient's age to complete this topic Meningococcal B Vaccine Aged Out No l onger eligible based on patient's age to complete this topic RSV Immunization Patients Under 20 months Aged Out No longer eligible based on patient's age to complete this topic Varicella Vaccines Aged Out No longer eligible based on patient's age to complete this topic Medical Devices Implanted Type Area Editing Intern Device Identifier Shelf Expiration Date Model / Serial / Lot Medt-Card Anabell Xt Dr Prado [id number] Implanted: (Quantity not on file) Cardiac Pacemaker [employer] - CARDIAC RHYTH-CRDM ANABELL XT DR PRADO [id number] / [id number] / Medt-Card Anabell Xt Dr Prado [id number] Implanted: (Quantity not on file) Cardiac Pacemaker [employer] - CARDIAC RHYTH-CRDM ANABELL XT DR PRADO / [id number] / Procedures Procedure Name Priority Date/Time Associated Diagnosis Comments CARDIAC DEVICE CHECK- IN CLINIC- MURJ Routine 11/21/2024 12:32 PM EDT Encounter for adjustment or management of cardiac device CARDIAC DEVICE CHECK- REMOTE- MURJ Routine 10/10/2024 9:38 AM EDT BASIC METABOLIC PANEL Routine 09/09/2024 6:07 AM EDT HEMOGLOBIN A1C Routine 12/03/2021 LIPID PANEL Routine 12/03/2021 from Last 3 Months or Most Recently Relevant to Health Maintenance Results * CARDIAC DEVICE CHECK- IN CLINIC- MURJ (11/21/2024 12:32 PM EDT) Date Time Interrogation Session [id number] CV DEVICE CHECK Implantable Pulse Generator Editing Intern MDT CV DEVICE CHECK Implantable Pulse Generator Type IPG CV DEVICE CHECK Implantable Pulse Generator Model Anabell XT DR PRADO CV DEVICE CHECK Implantable Pulse Generator Serial Number [id number] CV DEVICE CHECK Implantable Pulse Generator Implant Date 20210821 CV DEVICE CHECK Battery Status Middle of Service CV DEVICE CHECK Harlan Statistic RA Percent Paced 91.70 CV DEVICE CHECK Harlan Statistic RV Percent Paced 1.70 CV DEVICE CHECK Atrial Tachy Statistic AT/AF Zahl Percent 0.10 CV DEVICE CHECK Lead Channel Sensing Intrinsic Amplitude 1.000 CV DEVICE CHECK Lead Channel Setting Sensing Sensitivity 0.30 CV DEVICE CHECK Lead Channel Impedance Value 437 CV DEVICE CHECK Lead Channel Pacing Threshold Amplitude 0.880 CV DEVICE CHECK Lead Channel Pacing Threshold Pulse Width 0.4 CV DEVICE CHECK Lead Channel RA Pacing Threshold Date 2024-11-11 CV DEVICE CHECK Lead Channel Setting Pacing Amplitude 1.750 CV DEVICE CHECK Lead Channel Setting Pacing Pulse Width 0.4 CV DEVICE CHECK Lead Channel Sensing Intrinsic Amplitude 5.300 CV DEVICE CHECK Lead Channel Setting Sensing Sensitivity 0.90 CV DEVICE CHECK Lead Channel Impedance Value 437 CV DEVICE CHECK Lead Channel Pacing Threshold Amplitude 0.380 CV DEVICE CHECK Lead Channel Pacing Threshold Pulse Width 0.4 CV DEVICE CHECK Lead Channel RV Pacing Threshold Date 2024-11-21 CV DEVICE CHECK Lead Channel Setting Pacing Amplitude 2.000 CV DEVICE CHECK Lead Channel Setting Pacing Pulse Width 0.4 CV DEVICE CHECK Harlan Setting Mode (NBG Code) AAIR<=>DDDR CV DEVICE CHECK Harlan Setting Lower Rate Limit 60 CV DEVICE CHECK Harlan Setting AT Mode Switch Rate 171 CV DEVICE CHECK Harlan Setting Maximum Tracking Rate 120 CV DEVICE CHECK Harlan Setting Maximum Sensor Rate 120 CV DEVICE CHECK Zone Setting Type Category AT/AF CV DEVICE CHECK Therapies All Rx Off CV DEVICE CHECK Zone Setting Status Monitor CV DEVICE CHECK Zone ID 2 CV DEVICE CHECK Zone Setting Type Category VT CV DEVICE CHECK Zone Setting Status Monitor CV DEVICE CHECK Zone ID 5 CV DEVICE CHECK Date of Service 2025-10-31 CV DEVICE CHECK Anatomical Region Laterality Modality Device Interroga tion 11/21/2024 Impressions 11/27/2024 12:25 PM EDT Normal In-Office: No Events * Normal Device Function * Alerts or events: No new alerts since last transmission * Battery: MOS, 10.4 years * Sensing, impedance and thresholds reviewed and tested * Presenting Rhythm: AP-VS 60s * Underlying Rhythm: -VS 40s * Heart Rate Histograms reviewed * Pacing and Detection Parameters were evaluated Narrative Procedure Note Sylvain Miller MD - 11/28/2024 IMPRESSION: Normal In-Office: No Events * Normal Device Function * Alerts or events: No new alerts since last transmission * Battery: MOS, 10.4 years * Sensing, impedance and thresholds reviewed and tested * Presenting Rhythm: AP-VS 60s * Underlying Rhythm: -VS 40s * Heart Rate Histograms reviewed * Pacing and Detection Parameters were evaluated us Order Referral Cardiovascular CV IMPLANTABLE CAR DIAC DEVICE PROCEDURES Final Result * Cardiac device check - Remote- MURJ (10/10/2024 9:38 AM EDT) Date Time Interrogation Session [id number] CV DEVICE CHECK Type Interrogation Session Remote CV DEVICE CHECK Implantable Pulse Generator Editing Intern MDT CV DEVICE CHECK Implantable Pulse Generator Type IPG CV DEVICE CHECK Implantable Pulse Generator Model Anabell XT DR MRI [id number] CV DEVICE CHECK Implantable Pulse Generator Serial Number [id number] CV DEVICE CHECK Implantable Pulse Generator Implant Date 20210821 CV DEVICE CHECK Battery Remaining Longevity 126.0 CV DEVICE CHECK Battery Voltage 3.010 CV D EVICE CHECK Battery NIB FINISHER Trigger 2.625 CV DEVICE CHECK Battery Status Middle of Service CV DEVICE CHECK Harlan Statistic RA Percent Paced 72.39 CV DEVICE CHECK Harlan Statistic RV Percent Paced 1.23 CV DEVICE CHECK Atrial Tachy Statistic AT/AF Zahl Percent 0.00 CV DEVICE CHECK Lead Channel Sensing Intrinsic Amplitude 0.875 CV DEVICE CHECK Lead Channel Setting Sensing Sensitivity 0.30 CV DEVICE CHECK Lead Channel Impedance Value 437 CV DEVICE CHECK Lead Channel Pacing Threshold Amplitude 0.875 CV DEVICE CHECK Lead Channel Pacing Threshold Pulse Width 0.4 CV DEVICE CHECK Lead Channel RA Pacing Threshold Date 2024-10-03 CV DEVICE CHECK Lead Channel Setting Pacing Amplitude 1.750 CV DEVICE CHECK Lead Channel Setting Pacing Pulse Width 0.4 CV DEVICE CHECK Lead Channel Sensing Intrinsic Amplitude 5.000 CV DEVICE CHECK Lead Channel Setting Sensing Sensitivity 0.90 CV DEVICE CHECK Lead Channel Impedance Value 456 CV DEVICE CHECK Lead Channel Pacing Threshold Amplitude 0.500 CV DEVICE CHECK Lead Channel Pacing Threshold Pulse Width 0.4 CV DEVICE CHECK Lead Channel RV Pacing Threshold Date 2024-10-03 CV DEVICE CHECK Lead Channel Setting Pacing Amplitude 2.000 CV DEVICE CHECK Lead Channel Setting Pacing Pulse Width 0.4 CV DEVICE CHECK Harlan Setting Mode (NBG Code) AAIR<=>DDDR CV DEVICE CHECK Harlan Setting Lower Rate Limit 60 CV DEVICE CHECK Harlan Setting AT Mode Switch Rate 171 CV DEVICE CHECK Harlan Setting Maximum Tracking Rate 120 CV DEVICE CHECK Harlan Setting Maximum Sensor Rate 120 CV DEVICE CHECK Harlan Setting PAV Delay 180 CV DEVICE CHECK Harlan Setting ARACELI Delay 150 CV DEVICE CHECK Zone Setting Type Category AT/AF CV DEVICE CHECK Rate 171 CV DEVICE CHECK Therapies Some Rx Off CV DEVIC E CHECK Zone Setting Status Monitor CV DEVICE CHECK Zone ID 2 CV DEVICE CHECK Zone Setting Type Category VT CV DEVICE CHECK Rate 150 CV DEVICE CHECK Zone Setting Status ENABLED CV DEVICE CHECK Zone ID 6 CV DEVICE CHECK Date of Service 2024-11-26 CV DEVICE CHECK Anatomical Region Laterality Modality Device Interroga tion 10/03/2024 9:03 PM EDT Impressions 10/10/2024 9:36 AM EDT Normal Remote: With Events * Normal Device Function * Events or Alerts: 6- all one event *AF episodes 08/27/24 total time 15 mins suspect p wave under sensing when in afib/flutter sensitivity 0.3 mV * Battery: OK, 10.50 yrs * Sensing, impedance and thresholds reviewed * Programmed parameters reviewed * Presenting rhythm reviewed * Heart Rate Histograms reviewed Narrative Procedure Note Vicki Garcia PA - 10/10/2024 IMPRESSION: Normal Remote: With Events * Normal Device Function * Events or Alerts: 6- all one event *AF episodes 08/27/24 total time 15 mins suspect p wave under sensing when in afib/flutter sensitivity 0.3 mV * Battery: OK, 10.50 yrs * Sensing, impedance and thresholds reviewed * Programmed parameters reviewed * Presenting rhythm reviewed * Heart Rate Histograms reviewed Vicki MCGARRY CV IMPLANTABLE CARDIAC DEVICE CT OCEDURES Final Result * (ABNORMAL) Basic metabolic panel (09/09/2024 6:07 AM EDT) Sodium 135 133 - 145 mmol/L LAB CHEMISTRY METHOD 09/09/2024 7:23 AM EDT [facility] Potassium 4.5 3.5 - 5.5 mmol/L LAB CHEMISTRY METHOD 09/09/2024 7:23 AM EDT [facility] Chloride 103 96 - 110 mmol/L LAB CHEMISTRY METHOD 09/09/2024 7:23 AM [facility] CO2 27 21 - 32 mmol/L LAB CHEMISTRY METHOD 09/09/2024 7:23 AM [facility] Anion Gap 5 3 - 11 LAB CHEMISTRY METHOD 09/09/2024 7:23 AM [facility] Glucose 136(H) 70 - 100 mg/dL LAB CHEMISTRY METHOD 09/09/2024 7:23 AM [facility] BUN 19 5 - 25 mg/dL LAB CHEMISTRY METHOD 09/09/2024 7:23 AM [facility] Creatinine 0.82 0.70 - 1.30 mg/dL LAB CHEMISTRY METHOD 09/09/2024 7:23 AM [facility] eGFR 86 >=60 mL/min/1. 73m2 LAB CHEMISTRY METHOD 09/09/2024 7:23 AM [facility] Comment:Calculation based on the Chronic Kidney Disease Epidemiology Collaboration (CKD-EPI) equation refit without adjustment for race. BUN/Creatinine Ratio 23.2 LAB CHEMISTRY METHOD 09/09/2024 7:23 AM [facility] Calcium 8.9 8.5 - 10.5 mg/dL LAB CHEMISTRY METHOD 09/09/2024 7:23 AM [facility] Blood Venous blood specimen / Unknown Venipuncture / Unknown 09/09/2024 6:07 AM EDT 09/09/2024 6:22 AM EDT us Marleen Fragoso ECONOMIC SPECIALIST LAB BLOOD ORDERABLES Final Res ult [facility] [address] [place] [address], * (ABNORMAL) Hemoglobin A1c (12/03/2021) Hemoglobin A1C 8.1(A) <=6.5 % Blood Venous blood specimen / Unknown us Historical Provider LAB BLOOD ORDERABLES Mary l Result * Lipid panel (12/03/2021) LDL/HDL Ratio 2 0 - 4 Triglycerides 133 0 - 150 mg/dL Cholesterol 120 0 - 200 mg/dL HDL 55 >=40 mg/dL LDL Cholesterol 39 0 - 100 mg/dL Blood Venous blood specimen / Unknown us Historical Provider LAB BLOOD ORDERABLES Mary l Result from Last 3 Months or Most Recently Relevant to Health Maintenance Insurance [employer] [place] MEDIC[employer] ADVANTAGE [facility] Advance Directives Documents on File Type Date Recorded Patient News Videotape Editor Expl anation Advance Directives and Living Will 09/12/2024 8:12 AM [facility] Advance Directives and Living Will 08/31/2024 3:23 PM [facility] Health Care Decision (hx) 08/16/2023 AD MARK DIRECTIVE Health Care Decision (hx) 08/16/2023 AD MARK DIRECTIVE Health Care Decision (hx) 09/26/2022 AD MARK DIRECTIVE Health Care Decision (hx) 09/26/2022 AD MARK DIRECTIVE Health Care Decision (hx) 09/26/2022 AD MARK DIRECTIVE Advance Directives and Living Will 01/14/2022 ADVANCE DIRECTIVE Advance Directives and Living Will 01/14/2022 ADVANCE DIRECTIVE Health Care Decision (hx) 06/16/2021 AD MARK DIRECTIVE Health Care Decision (hx) 06/16/2021 AD MARK DIRECTIVE Health Care Decision (hx) 06/16/2021 AD MARK DIRECTIVE Health Care Decision (hx) 06/16/2021 AD MARK DIRECTIVE Health Care Decision (hx) 06/16/2021 AD MARK DIRECTIVE Health Care Decision (hx) 06/16/2021 AD MARK DIRECTIVE Health Care Decision (hx) 06/16/2021 AD MARK DIRECTIVE Health Care Decision (hx) 06/16/2021 AD MARK DIRECTIVE Health Care Decision (hx) 06/16/2021 AD MARK DIRECTIVE Health Care Decision (hx) 06/05/2021 AD MARK DIRECTIVE Health Care Decision (hx) 06/05/2021 AD MARK DIRECTIVE Health Care Decision (hx) 06/05/2021 AD MARK DIRECTIVE Health Care Decision (hx) 06/05/2021 AD MARK DIRECTIVE Health Care Decision (hx) 06/05/2021 AD MARK DIRECTIVE Health Care Decision (hx) 06/05/2021 AD MARK DIRECTIVE Health Care Decision (hx) 06/05/2021 AD MARK DIRECTIVE Health Care Decision (hx) 06/05/2021 AD MARK DIRECTIVE Health Care Decision (hx) 06/05/2021 AD MARK DIRECTIVE Health Care Decision (hx) 06/05/2021 AD MARK DIRECTIVE Health Care Decision (hx) 03/31/2020 AD MARK DIRECTIVE Health Care Decision (hx) 03/31/2020 AD MARK DIRECTIVE Health Care Decision (hx) 03/31/2020 AD MARK DIRECTIVE Health Care Decision (hx) 03/31/2020 AD MARK DIRECTIVE Health Care Decision (hx) 03/31/2020 AD MARK DIRECTIVE Health Care Decision (hx) 03/31/2020 AD MARK DIRECTIVE Health Care Decision (hx) 03/31/2020 AD MARK DIRECTIVE Health Care Decision (hx) 03/31/2020 AD MARK DIRECTIVE Health Care Decision (hx) 03/31/2020 AD MARK DIRECTIVE Health Care Decision (hx) 03/31/2020 AD MARK DIRECTIVE Health Care Decision (hx) 03/31/2020 AD MARK DIRECTIVE Health Care Decision (hx) 03/31/2020 AD MARK DIRECTIVE Health Care Decision (hx) 03/31/2020 AD MARK DIRECTIVE Health Care Decision (hx) 03/31/2020 AD MARK DIRECTIVE Health Care Decision (hx) 03/31/2020 AD MARK DIRECTIVE Health Care Decision (hx) 03/31/2020 AD MARK DIRECTIVE Health Care Decision (hx) 03/31/2020 AD MARK DIRECTIVE Health Care Decision (hx) 03/31/2020 AD MARK DIRECTIVE Health Care Decision (hx) 03/31/2020 AD MARK DIRECTIVE Health Care Decision (hx) 03/30/2020 AD MARK DIRECTIVE Health Care Decision (hx) 03/30/2020 AD MARK DIRECTIVE Health Care Decision (hx) 03/30/2020 AD MARK DIRECTIVE Health Care Decision (hx) 03/30/2020 AD MARK DIRECTIVE Health Care Decision (hx) 03/30/2020 AD MARK DIRECTIVE Health Care Decision (hx) 03/30/2020 AD MARK DIRECTIVE Health Care Decision (hx) 03/30/2020 AD MARK DIRECTIVE Health Care Decision (hx) 03/30/2020 AD MARK DIRECTIVE Health Care Decision (hx) 03/30/2020 AD MARK DIRECTIVE Health Care Decision (hx) 03/30/2020 AD MARK DIRECTIVE Health Care Decision (hx) 03/30/2020 AD MARK DIRECTIVE Health Care Decision (hx) 03/30/2020 AD MARK DIRECTIVE Health Care Decision (hx) 03/30/2020 AD MARK DIRECTIVE Health Care Decision (hx) 03/30/2020 AD MARK DIRECTIVE Health Care Decision (hx) 03/30/2020 AD MARK DIRECTIVE Health Care Decision (hx) 03/30/2020 AD MARK DIRECTIVE Health Care Decision (hx) 03/30/2020 AD MARK DIRECTIVE Health Care Decision (hx) 03/30/2020 AD MARK DIRECTIVE Health Care Decision (hx) 03/30/2020 AD MARK DIRECTIVE Health Care Decision (hx) 03/25/2020 AD MARK DIRECTIVE Health Care Decision (hx) 03/25/2020 AD MARK DIRECTIVE Health Care Decision (hx) 03/25/2020 AD MARK DIRECTIVE Health Care Decision (hx) 03/25/2020 AD MARK DIRECTIVE Health Care Decision (hx) 03/25/2020 AD MARK DIRECTIVE Health Care Decision (hx) 03/25/2020 AD MARK DIRECTIVE Health Care Decision (hx) 03/25/2020 AD MARK DIRECTIVE Health Care Decision (hx) 03/25/2020 AD MARK DIRECTIVE Health Care Decision (hx) 03/25/2020 AD MARK DIRECTIVE Health Care Decision (hx) 03/25/2020 AD MARK DIRECTIVE Health Care Decision (hx) 03/25/2020 AD MARK DIRECTIVE Health Care Decision (hx) 03/25/2020 AD MARK DIRECTIVE Health Care Decision (hx) 03/25/2020 AD MARK DIRECTIVE Health Care Decision (hx) 03/25/2020 AD MARK DIRECTIVE Health Care Decision (hx) 03/25/2020 AD MARK DIRECTIVE Health Care Decision (hx) 03/25/2020 AD MARK DIRECTIVE Health Care Decision (hx) 03/25/2020 AD MARK DIRECTIVE Health Care Decision (hx) 03/25/2020 AD MARK DIRECTIVE Health Care Decision (hx) 03/25/2020 AD MARK DIRECTIVE * No CPR/Do Not Intubate (Latest Code Status on File) Date Activated Date Inactivated Comments 2024 11:49 AM 08/30/2024 3:[address] atus was ascertained in the following way: Code status discussion: per living will or healthcare instructions To update the patient's code status, place a code status order. Do not modify or discontinue any currently active code status orders. Care Teams Pit Tanner Relationship Specialty Start Date End Date Rafael Malagon MD [address] [place] [address] [address] [place], [place] PCP - General Endocrinology 09/08/24
--- OUTSIDE RECORDS SUMMARY | 2024-12-17 06:18 | XMS_ITS | Clinical Summary ---
Author Organization [employer] Address [address] [facility] 7[address] [place] [address] Care Team Providers Care Catalytic Converter Operator Helper Name Role Phone Unavailable Primary Care Provider [...]
--- OUTSIDE RECORDS SUMMARY | 2024-12-17 06:18 | XMS_ITS | Patient Health Record ---
Author Organization [facility] [employer] [facility] Address [address] [facility] [address] [place] [address] Care Team Providers Care Automatic Pinsetter Mechanic Name Role Phone Ana Laura Marie Primary [...] Polyneuropathy due to type 2 diabetes mellitus (980444843) Type 2 diabetes mellitus with diabetic polyneuropathy (E11.42) Active confirmed Problem Peripheral circulatory disorder associated with diabetes mellitus (163365153) Type 2 diabetes mellitus with other circulatory complications (E11.59) Active confirmed Problem Long-term current use of insulin (184444537) care home (current) use of insulin (Z79.4) Active confirmed Plan Of Treatment No Information Insurance Providers Payer Name Payer Address Payer Phone Subscriber Number Group Number Insured Name Patient Relationship to Insured Coverage Start Date Coverage End Date [employer] Medicare Preferred [address] [place] [phone] [id number] Ana Paula augusto Petey Self - patient is the insured Medical (General) History Medical History History ICD Code Type 2 diabetes mellitus Periodic limb movement disorder G47.61 Anemia in other chronic diseases classif ied elsewhere D63.8 Obesity, unspecified E66.9 Calculus of gallbladder with acute and chronic cholecystitis without obstruction 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
== END 2024-12-17 06:16 | disposition home or self-care (01) ==
LOC: HO.HSH2E 06:15
PROVIDERS: Visit Provider Internal Medicine Endocrinology, Diabetes & Metabolism
DX: E11.9 Type 2 diabetes mellitus without complications (principal)
CPT/HCPCS: 36415; 83036

== ENCOUNTER 2025-01-01 07:31 | Outpatient (REF) | payer MEDICARE, SELFPAY ==
--- OUTSIDE RECORDS SUMMARY | 2025-01-01 07:34 | XMS_ITS | Clinical Summary ---
Author Organization [employer] Address [address] [facility] [address] [place] [address] Care Team Providers Care Spacer Type Bar And Segment Name Role Phone Unavailable Primary Care Provider [...]
--- OUTSIDE RECORDS SUMMARY | 2025-01-01 07:34 | XMS_ITS | Encounter Summary ---
Author Organization [employer] Address [address] [facility] 7[address] [place] [address] Care Team Providers Care Rn Occupational Name Role Phone Unavailable Primary Care Provider Unavailabl e Encounter Details Date Type Department Care Team (Late st Contact Info) Description 02/11/[address] [facility] [address] [place] [address] Raul Chan, DMD [address] [place] [address] Social History Tobacco Use Types Packs/Day Years [...]
--- OUTSIDE RECORDS SUMMARY | 2025-01-01 07:35 | XMS_ITS | Patient Health Record ---
Author Organization [facility] Address [address] [facility] [address] [place] [address] Care Team Providers Care Office Administration Name Role Phone Ana Laura Marie Primary [...] Polyneuropathy due to type 2 diabetes mellitus (333565913) Type 2 diabetes mellitus with diabetic polyneuropathy (E11.42) Active confirmed Problem Peripheral circulatory disorder associated with diabetes mellitus (541526286) Type 2 diabetes mellitus with other circulatory complications (E11.59) Active confirmed Problem Long-term current use of insulin (867559378) jail (current) use of insulin (Z79.4) Active confirmed Plan Of Treatment No Information Insurance Providers Payer Name Payer Address Payer Phone Subscriber Number Group Number Insured Name Patient Relationship to Insured Coverage Start Date Coverage End Date [employer] Medicare Preferred [address] [place] [address] [phone] [id number] Ana Paula augusto Petey Self - patient is the insured Medical (General) History Medical History History ICD Code Type 2 diabetes mellitus Periodic limb movement disorder G47.61 Anemia in other chronic diseases classif ied elsewhere D63.8 Obesity, unspecified E66.9 Calculus of gallbladder with acute and chronic cholecystitis without obstruction 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
--- OUTSIDE RECORDS SUMMARY | 2025-01-01 07:35 | XMS_ITS | Clinical Summary ---
Author Organization [address] [place] [address] Address [address] [place] [address] Phone Care Team Providers Care Adult Probation Officer Name Role Phone Rafael Malagon MD Primary Care Provider [phone] Allergies No known active allergies Medications FREESTYLE [...] Bacteremia 08/30/2024 Sepsis ([facility] V24, [facility] V28) 08/30/2024 NSTEMI, initial episode of care ([facility] V24, [facility] V28) 2024 Hypertension 02/16/2024 Overview (02/16/2024): Last [...] Ascending aorta dilatation ([facility] V24) 023 Overview (02/16/2024): Last Assessment & Plan: Last echocardiogram in January 19 revealed 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 Patient denies chest pain, back pain, shortness of breath or syncope. We will update this to continue surveillance of progression of the aortic dilatation. Chest pain 06/22/2022 Acute CHF ([facility] V24, [facility] V28) 03/17/2022 Cellulitis of left hand 03/17/2022 Unsteady gait 03/17/2022 (HFpEF) heart failure with p reserved ejection fraction ([facility] V24, [facility] V28) 11/24/2021 Overview (02/16/2024): Last Assessment & Plan: Patient euvolemic upon exam today. He denies shortness of breath or dyspnea on exertion. He continues on his current dose of torsemide. He is weighed daily as [place] [facility] [place]. 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 [facility] Sleep Center Polysomnogram treatment study. Date 09/26/2018. Wt 213#; BMI 32; SE 64 % SM 64 %; spent 26 % of the study in REM. On CPAP; RDI 39 (AHI 39), Central apneas 137; Obstructive apneas 39; Mixed apneas 2; hypopneas 48; RERAs 1; and, average oxygen saturation was 94%. For the entire study, PLMs ~131. [facility] Sleep Center Polysomnogram ASV treatment study. Date [...] Description 11/21/2024 10:30 AM EDT Ancillary Procedure [facility] [address] [place] [address] Encounter for adjustment or management of cardiac device 11/02/2024 Telephone [facility] [address] [place] [address] Lacey Garces [place] 10/10/2024 9:40 AM EDT Ancillary Procedure [facility] [address] [place] [address] 10/10/2024 Telephone [facility] [address] [place] [address] Vicki Garcia PA from Last 3 Months [...] Site/Laterality Comments INCISIONAL HERNIA REPAIR 2005 PROCEDURE: DC IMPLANT MESH OPN HERNIA RPR/DEBRIDEMENT CLOSURE; COMMENT: [...] mellitus), type 2 with peripheral vascular complications (CMS/[facility] V24, CMS/[facility] V28) 12/11/2019 DX:DM (diabetes mellitus), type 2 with peripheral vascular complications (HCC) PAD (peripheral artery disea se) (CMS/HCC V24) 08/21/2021 DX:PAD (peripheral artery di sease) ([facility]) Onychomycosis 08/21/2021 DX:Onychomycosis ; COMMENT: Dr. Delcua Family History Medical History Relation Name Comments [...] Description 11/26/2025 11:00 AM EDT Ancillary Procedure [facility] [address] [facility] [address] [place] [address] Health Maintenance Due Date Last [...] this topic Medical Devices Implanted Type Area Lift Supervisor Device Identifier Shelf Expiration Date Model / Serial / Lot Medt-Card Anabell Xt Dr Prado [id number] Implanted: (Quantity not on file) Cardiac Pacemaker [employer] - CARDIAC RHYTH-CRDM ANABELL XT DR PRADO [id number] / [id number] / Medt-Card Anabell Xt Dr Prado [id number] Implanted: (Quantity not on file) Cardiac Pacemaker [employer] - CARDIAC RHYTH-CRDM ANABELL XT DR PRADO / [id number] / Procedures Procedure Name Priority Date/Time Associated [...] 12:32 PM EDT) Date Time Interrogation Session [id number] CV DEVICE CHECK Implantable Pulse Generator Lift Supervisor MDT CV DEVICE CHECK Implantable Pulse Generator Type IPG CV DEVICE CHECK Implantable Pulse Generator Model Anabell XT DR PRADO CV DEVICE CHECK Implantable Pulse Generator Serial Number [id number] CV DEVICE CHECK Implantable Pulse Generator Implant Date 20210821 CV DEVICE CHECK Battery Status Middle of Service CV DEVICE CHECK Harlan Statistic RA Percent Paced 91.70 CV DEVICE CHECK Harlan Statistic RV Percent Paced 1.70 CV DEVICE CHECK Atrial Tachy Statistic AT/AF [place] Percent 0.10 CV DEVICE CHECK Lead Channel [...] 9:38 AM EDT) Date Time Interrogation Session [id number] CV DEVICE CHECK Type Interrogation Session Remote CV DEVICE CHECK Implantable Pulse Generator Lift Supervisor MDT CV DEVICE CHECK Implantable Pulse Generator Type IPG CV DEVICE CHECK Implantable Pulse Generator Model Anabell XT DR MRI [id number] CV DEVICE CHECK Implantable Pulse Generator Serial Number [id number] CV DEVICE CHECK Implantable Pulse Generator Implant Date 20210821 CV DEVICE CHECK Battery Remaining Longevity 126.0 CV DEVICE CHECK Battery Voltage 3.010 CV D EVICE CHECK Battery SENIOR ELECTRICAL PROJECT MANAGER Trigger 2.625 CV DEVICE CHECK Battery Status Middle of Service CV DEVICE CHECK Harlan Statistic RA Percent Paced 72.39 CV DEVICE CHECK [place]lan Statistic RV Percent Paced 1.23 CV DEVICE CHECK Atrial Tachy Statistic AT/AF [place] Percent 0.00 CV DEVICE CHECK Lead Channel [...] reviewed Vicki MCGARRY CV IMPLANTABLE CARDIAC DEVICE DC OCEDURES Final Result * (ABNORMAL) Basic metabolic panel (09/09/2024 6:07 AM EDT) Sodium 135 133 - 145 mmol/L LAB CHEMISTRY METHOD 09/09/2024 7:23 AM EDT [facility] Potassium 4.5 3.5 - 5.5 mmol/L LAB CHEMISTRY METHOD 09/09/2024 7:23 AM EDT [facility] Chloride 103 96 - 110 mmol/L LAB CHEMISTRY METHOD 09/09/2024 7:[address] [facility] CO2 27 21 - 32 mmol/L LAB CHEMISTRY METHOD 09/09/2024 7:[address] [facility] Anion Gap 5 3 - 11 LAB CHEMISTRY METHOD 09/09/2024 7:[address] [facility] Glucose 136(H) 70 - 100 mg/dL LAB CHEMISTRY METHOD 09/09/2024 7:[address] [facility] BUN 19 5 - 25 mg/dL LAB CHEMISTRY METHOD 09/09/2024 7:[address] [facility] Creatinine 0.82 0.70 - 1.30 mg/dL LAB CHEMISTRY METHOD 09/09/2024 7:[address] [facility] eGFR 86 >=60 mL/min/1. 73m2 LAB CHEMISTRY METHOD 09/09/2024 7:[address] [facility] Comment:Calculation based on the Chronic Kidney Disease Epidemiology Collaboration (CKD-EPI) equation refit without adjustment for race. BUN/Creatinine Ratio 23.2 LAB CHEMISTRY METHOD 09/09/2024 7:[address] [facility] Calcium 8.9 8.5 - 10.5 mg/dL LAB CHEMISTRY METHOD 09/09/2024 7:[address] [facility] Blood Venous blood specimen / Unknown Venipuncture / Unknown 09/09/2024 6:07 AM EDT 09/09/2024 6:22 AM EDT us Marleen Fragoso STUDENT UNION CONSULTANT LAB BLOOD ORDERABLES Final Res ult [facility] [address] [place] [address], * (ABNORMAL) Hemoglobin A1c (12/03/2021) Hemoglobin A1C [...] Maintenance Insurance [employer] [place] MED[employer] ADVANTAGE [facility] Advance Directives Documents on File Type Date Recorded 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 Care Teams Adult Probation Officer Relationship Specialty Start Date End Date Rafael Malagon MD [address] [place] [address] [address] [place], [place] PCP - General Endocrinology 09/08/24
== END 2025-01-01 07:32 | disposition home or self-care (01) ==
LOC: HO.HSH2E 07:31
PROVIDERS: Visit Provider Internal Medicine Endocrinology, Diabetes & Metabolism
DX: E11.9 Type 2 diabetes mellitus without complications (principal)
CPT/HCPCS: 36415; 83036

== ENCOUNTER 2025-01-23 05:48 | Outpatient (REF) | payer MEDICARE, SELFPAY ==
[2025-01-23 05:50] LABS: MANUAL DIFF FLAG NO
--- OUTSIDE RECORDS SUMMARY | 2025-01-23 05:52 | XMS_ITS | Encounter Summary ---
Author Organization [employer] Address [address] [facility] [address] [place] [address] Care Team Providers Care Brick And Block Mason Name Role Phone Unavailable Primary Care Provider Unavailabl e Encounter Details Date Type Department Care Team (Late st Contact Info) Description 02/11/2023 Abstract [facility] [address] [place] [address] Raul Chan, DMD [address] [place] [address] Social History Tobacco Use Types Packs/Day Years [...]
--- OUTSIDE RECORDS SUMMARY | 2025-01-23 05:52 | XMS_ITS | Clinical Summary ---
Author Organization [employer] Address [address] [facility] [address]t [place] [address] Care Team Providers Care Formula Bottler Name Role Phone Unavailable Primary Care Provider [...]
--- OUTSIDE RECORDS SUMMARY | 2025-01-23 05:53 | XMS_ITS | Patient Health Record ---
Author Organization [facility] Address [address] [facility] [address] [place] [address] Care Team Providers Care International Editorial Producer Name Role Phone Ana Laura Marie Primary [...] Polyneuropathy due to type 2 diabetes mellitus (294707077) Type 2 diabetes mellitus with diabetic polyneuropathy (E11.42) Active confirmed Problem Peripheral circulatory disorder associated with diabetes mellitus (687676793) Type 2 diabetes mellitus with other circulatory complications (E11.59) Active confirmed Problem Long-term current use of insulin (261570766) long-term (current) use of insulin (Z79.4) Active confirmed Plan Of Treatment No Information Insurance Providers Payer Name Payer Address Payer Phone Subscriber Number Group Number Insured Name Patient Relationship to Insured Coverage Start Date Coverage End Date [employer] Medicare Preferred [address] [place] [address] [id number] Ana Paula augusto Petey Self - patient is the insured Medical (General) History Medical History History ICD Code Type 2 diabetes mellitus Periodic limb movement disorder G47.61 Anemia in other chronic diseases classif ied elsewhere D63.8 Obesity, unspecified E66.9 Calculus of gallbladder with acute and chronic cholecystitis without obstruction 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
--- OUTSIDE RECORDS SUMMARY | 2025-01-23 05:53 | XMS_ITS | Clinical Summary ---
Author Organization [address] [place] [address] Address [address] [place] [address] Phone Care Team Providers Care Roto Rooter Operator Name Role Phone Rafael Malagon MD Primary [...] acidosis 09/08/2024 Pneumonia 08/30/2024 Bacteremia 08/30/2024 Sepsis ([facility] V24, [facility] V28) 08/30/2024 NSTEMI, initial episode of care ([facility] V24, [facility] V28) 2024 Hypertension 02/16/2024 Overview (02/16/2024): Last [...] a week as tolerated. Ascending aorta dilatation ([facility] V24) 023 Overview (02/16/2024): Last Assessment & Plan: Last echocardiogram in January 19 revealed 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 Patient denies chest pain, back pain, shortness of breath or syncope. We will update this to continue surveillance of progression of the aortic dilatation. Chest pain 06/22/2022 Acute CHF ([facility] V24, [facility] V28) 03/17/2022 Cellulitis of left hand 03/17/2022 Unsteady gait 03/17/2022 (HFpEF) heart failure with p reserved ejection fraction ([facility] V24, [facility] V28) 11/24/2021 Overview (02/16/2024): Last Assessment & Plan: Patient euvolemic upon exam today. He denies shortness of breath or dyspnea on exertion. He continues on his current dose of torsemide. He is weighed daily as he resides at the [facility]. We will update a surveillance echocardiogram to [...] (02/16/2024): Dr. 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 [facility] Sleep Center Polysomnogram treatment study. Date 09/26/2018. Wt 213#; BMI 32; SE 64 % SM 64 %; spent 26 % of the study in REM. On CPAP; RDI 39 (AHI 39), Central apneas 137; Obstructive apneas 39; Mixed apneas 2; hypopneas 48; RERAs 1; and, average oxygen saturation was 94%. For the entire study, PLMs ~131. [facility] Sleep Center Polysomnogram ASV treatment [...] Description 11/21/2024 10:30 AM EDT Ancillary Procedure [facility] Cardiology [facility] - [facility] [address] [facility] [address] [place] [address] Encounter for adjustment or management of cardiac device 11/02/[address] [facility] [address] [facility] [address] [place] [address] Lacey Garces [place] from Last 3 Months Immunizations Immunization Administration [...] Surgery Date Site/Laterality Comments INCISIONAL HERNIA REPAIR 2006 PROCEDURE: ID IMPLANT MESH OPN HERNIA RPR/DEBRIDEMENT CLOSURE; COMMENT: [...] mellitus), type 2 with peripheral vascular complications ([facility] V24, [facility] V28) 12/11/2019 DX:DM (diabetes mellitus), type 2 with peripheral vascular complications ([facility]) PAD (peripheral artery disea se) ([facility] V24) 08/21/2021 DX:PAD (peripheral artery di sease) ([facility]) Onychomycosis 08/21/2021 DX:Onychomycosis ; COMMENT: Dr. Deluca [...] Description 11/26/2025 11:00 AM EDT Ancillary Procedure [facility] [address] [facility] [address] [place] [address] Health Maintenance Due Date Last [...] 11/28/2012, 11/28/2005 Depression Screening 02/29/2024 COVID-19 Vaccine (2024- season) 2024 02/16/2022, 09/16/2021, 01/27/2021, Additional history [...] this topic Medical Devices Implanted Type Area Labor Economics Teacher Device Identifier Shelf Expiration Date Model / Serial / Lot Medt-Card Rialto Xt Mri [id number] Implanted: (Quantity not on file) Cardiac Pacemaker [employer] - CARDIAC RHYTH-CRDM ANABELL XT DR PRADO [id number] / [id number] / Medt-Card Rialto Xt Dr Prado [id number] Implanted: (Quantity not on file) Cardiac Pacemaker [employer] - CARDIAC RHYTH-CRDM ANABELL XT DR PRADO / [id number] / Procedures Procedure Name Priority Date/Time Associated Diagnosis Comments CARDIAC DEVICE CHECK- IN CLINIC- [facility]J Routine 11/21/2024 12:32 PM EDT Encounter for adjustment or management of cardiac device BASIC METABOLIC PANEL Routine 09/09/2024 6:07 AM EDT HEMOGLOBIN A1C Routine 12/03/2021 LIPID PANEL Routine 12/03/2021 from Last 3 Months or Most Recently Relevant to Health Maintenance Results * CARDIAC DEVICE CHECK- IN CLINIC- [facility]J (11/21/2024 12:32 PM EDT) Date Time Interrogation Session [id number] CV DEVICE CHECK Implantable Pulse Generator Labor Economics Teacher MDT CV DEVICE CHECK Implantable Pulse Generator Type IPG CV DEVICE CHECK Implantable Pulse Generator Model Rialto XT DR PRADO CV DEVICE CHECK Implantable Pulse Generator Serial Number [id number] CV DEVICE CHECK Implantable Pulse Generator Implant Date [id number] CV DEVICE CHECK Battery Status Middle of Service CV DEVICE CHECK Harlan Statistic RA Percent Paced 91.70 CV DEVICE CHECK Harlan Statistic RV Percent Paced 1.70 CV DEVICE CHECK Atrial Tachy Statistic AT/AF [place] Percent 0.10 CV DEVICE CHECK Lead Channel [...] CAR DIAC DEVICE PROCEDURES Final Result * (ABNORMAL) Basic metabolic panel (09/09/2024 6:07 AM EDT) Sodium 135 133 - 145 mmol/L LAB CHEMISTRY METHOD 09/09/2024 7:[address] [facility] Potassium 4.5 3.5 - 5.5 mmol/L LAB CHEMISTRY METHOD 09/09/2024 7:[address] [facility] Chloride 103 96 - 110 mmol/L LAB CHEMISTRY METHOD 09/09/2024 7:[address] [facility] CO2 27 21 - 32 mmol/L LAB CHEMISTRY METHOD 09/09/2024 7:[address] [facility] Anion Gap 5 3 - 11 LAB CHEMISTRY METHOD 09/09/2024 7:[address] [facility] Glucose 136(H) 70 - 100 mg/dL LAB CHEMISTRY METHOD 09/09/2024 7:[address] [facility] BUN 19 5 - 25 mg/dL LAB CHEMISTRY METHOD 09/09/2024 7:[address] [facility] Creatinine 0.82 0.70 - 1.30 mg/dL LAB CHEMISTRY METHOD 09/09/2024 7:[address] [facility] eGFR 86 >=60 mL/min/1. 73m2 LAB CHEMISTRY METHOD 09/09/2024 7:[address] [facility] Comment:Calculation based on the Chronic Kidney Disease Epidemiology Collaboration (CKD-EPI) equation refit without adjustment for race. BUN/Creatinine Ratio 23.2 LAB CHEMISTRY METHOD 09/09/2024 7:[address] [facility] Calcium 8.9 8.5 - 10.5 mg/dL LAB CHEMISTRY METHOD 09/09/2024 7:[address] [facility] Blood Venous blood specimen / Unknown Venipuncture / Unknown 09/09/2024 6:07 AM EDT 09/09/2024 6:22 AM EDT Marleen Fragoso NP LAB BLOOD ORDERABLES Final Res ult [facility] [address] [place] [address], * (ABNORMAL) Hemoglobin A1c (12/03/2021) Hemoglobin A1C 8.1(A) <=6.5 % Blood Venous blood specimen / Unknown Historical Provider LAB BLOOD ORDERABLES Mary l Result * Lipid panel (12/03/2021) LDL/HDL Ratio 2 0 - 4 Triglycerides 133 0 - 150 mg/dL Cholesterol 120 0 - 200 mg/dL HDL 55 >=40 mg/dL LDL Cholesterol 39 0 - 100 mg/dL Blood Venous blood specimen / Unknown [facility] Provider LAB BLOOD ORDERABLES Mary l Result from Last 3 Months or Most Recently Relevant to Health Maintenance Insurance [employer] [place] [employer] ADVANTAGE [facility] Advance Directives Documents on File Type Date Recorded 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 Care Teams Roto Rooter Operator Relationship Specialty Start Date End Date Rafael Malagon MD [address] [place] [address] [address] [place] PCP - General Endocrinology 09/08/24
[2025-01-23 06:09] LABS: Hematocrit 38.1 % (42.0-52.0); Hemoglobin 12.8 g/dl (14.0-18.0); Imm Gran Abs Auto 0.03 X10*3/uL (0.00-0.03); Imm Gran Pct Auto 0.3 % (0.0-0.4); Lymphocytes Absolute Auto 1.4 X10*3/uL (1.2-4.9); Mean Corpuscular HGB Conc 33.6 g/dl (31.0-36.0); Mean Corpuscular Hemoglobin 30.5 pg (27.0-33.0); Mean Corpuscular Volume 90.7 fL (80.0-98.0); NRBC Abs Auto 0.000 X10*3/uL (0.0-0.012); NRBC Pct Auto 0.0 /100WBC (0.0-0.2); Platelet Count 300 X10*3/uL (160-400); Red Blood Count 4.20 X10*6/uL (4.60-5.80); White Blood Count 9.0 X10*3/uL (4.8-10.8)
[2025-01-23 07:57] LABS: Appearance Urine Clear; Glucose Urine UA Negative (Negative); PH 5.5 (5.0-9.0); Specific Gravity - Urine 1.015 (1.005-1.025)
== END 2025-01-23 05:49 | disposition home or self-care (01) ==
LOC: HO.HSH2E 05:48
PROVIDERS: Visit Provider Internal Medicine Endocrinology, Diabetes & Metabolism
DX: R50.9 Fever, unspecified (principal)
CPT/HCPCS: 36415; 81003; 85025

== ENCOUNTER 2025-01-28 06:02 | Outpatient (REF) | payer MEDICARE, SELFPAY ==
[2025-01-28 06:04] LABS: MANUAL DIFF FLAG NO
--- OUTSIDE RECORDS SUMMARY | 2025-01-28 06:04 | XMS_ITS | Clinical Summary ---
Author Organization [employer] Address [address] [facility] [address] [place] [address] Care Team Providers Care Bank Clerk Name Role Phone Unavailable Primary Care Provider [...]
--- OUTSIDE RECORDS SUMMARY | 2025-01-28 06:05 | XMS_ITS | Patient Health Record ---
Author Organization [facility] Address [address] [facility] [address] [place] [address] Care Team Providers Care Ground Defence Officer Name Role Phone Ana Laura Marie [...] Polyneuropathy due to type 2 diabetes mellitus (030611446) Type 2 diabetes mellitus with diabetic polyneuropathy (E11.42) Active confirmed Problem Peripheral circulatory disorder associated with diabetes mellitus (888603563) Type 2 diabetes mellitus with other circulatory complications (E11.59) Active confirmed Problem Long-term current use of insulin (110224924) long-term (current) use of insulin (Z79.4) Active confirmed Plan Of Treatment No Information Insurance Providers Payer Name Payer Address Payer Phone Subscriber Number Group Number Insured Name Patient Relationship to Insured Coverage Start Date Coverage End Date [employer] Medicare Preferred [address] [place] [address] [phone] [id number] Ana Paula augusto Petey Self - patient is the insured Medical (General) History Medical History History ICD Code Type 2 diabetes mellitus Periodic limb movement disorder G47.61 Anemia in other chronic diseases classif ied elsewhere D63.8 Obesity, unspecified E66.9 Calculus of gallbladder with acute and chronic cholecystitis without obstruction 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
--- OUTSIDE RECORDS SUMMARY | 2025-01-28 06:05 | XMS_ITS | Encounter Summary ---
Author Organization [employer] Address [address] [facility] [address] [place] [address] Care Team Providers Care Ornamental Bronze Worker Name Role Phone Unavailable Primary Care Provider Unavailabl e Encounter Details Date Type Department Care Team (Late st Contact Info) Description 02/11/2023 Abstract [facility] [address] [place] [address] Raul Chan, DMD [address] [place] [address] Social History Tobacco Use Types Packs/Day Years [...]
[2025-01-28 06:31] LABS: Hematocrit 36.2 % (42.0-52.0); Hemoglobin 11.7 g/dl (14.0-18.0); Imm Gran Abs Auto 0.05 X10*3/uL (0.00-0.03); Imm Gran Pct Auto 0.7 % (0.0-0.4); Lymphocytes Absolute Auto 2.0 X10*3/uL (1.2-4.9); Mean Corpuscular HGB Conc 32.3 g/dl (31.0-36.0); Mean Corpuscular Hemoglobin 30.1 pg (27.0-33.0); Mean Corpuscular Volume 93.1 fL (80.0-98.0); NRBC Abs Auto 0.000 X10*3/uL (0.0-0.012); NRBC Pct Auto 0.0 /100WBC (0.0-0.2); Platelet Count 342 X10*3/uL (160-400); Red Blood Count 3.89 X10*6/uL (4.60-5.80); White Blood Count 7.7 X10*3/uL (4.8-10.8)
[2025-01-28 06:43] LABS: Alanine Aminotransferase 43 U/L (0-40); Albumin Level 3.6 g/dL (3.5-5.0); Alkaline Phosphatase 251 U/L (39-117); Anion Gap 11 (12-20); Aspartate Amino Transferase 73 U/L (5-37); Blood Urea Nitrogen 20 mg/dL (9-16); Calcium 9.5 mg/dL (8.4-10.2); Carbon Dioxide 27 mmol/L (22-29); Chloride 104 mmol/L (96-108); Estimated Glomerular Filt Rate > 60; Potassium 4.2 mmol/L (3.3-5.1); Sodium 138 mmol/L (135-145); Total Protein 8.6 g/dL (6.5-8.0)
[2025-01-28 06:50] LABS: NT Pro B Type Natriuretic Pept 455.8 pg/mL (<300)
[2025-01-28 07:05] LABS: Resp Syncy Virus RNA Qual PCR NEGATIVE (Negative); SARS COV2 PCR INHOUSE NEGATIVE (Negative)
== END 2025-01-28 06:03 | disposition home or self-care (01) ==
LOC: HO.HSH2E 06:02
PROVIDERS: Nurse Practitioner Acute Care; Visit Provider Internal Medicine Endocrinology, Diabetes & Metabolism
DX: R50.9 Fever, unspecified (principal)
CPT/HCPCS: 80053; 83880; 85025; 87637